=== PATIENT | female | born 1945 | race Caucasian/White ===

== ENCOUNTER → 2016-07-26 | Outpatient (CLI) | payer MEDICARE ==
--- NOTE | 2016-07-27 08:27 | MR ---
EXAMINATION TYPE: MR lumbar spine wo con DATE OF EXAM: 07/26/2016 2:09 PM COMPARISON: NONE HISTORY: Low back pain TECHNIQUE: Multiplanar, multisequence images of the lumbar spine were acquired. L1-L2: There is mild to moderate disc desiccation. Mild circumferential disc bulge with mild effaceme nt of the ventral thecal sac. No evidence for ayesha herniation or central stenosis. Facet joint arthr opathy resulting in bilateral foraminal encroachment. L2-L3: There is mild to moderate disc desiccation. Mild circumferential disc bulge with mild effaceme nt of the ventral thecal sac. No evidence for ayesha herniation or central stenosis. Facet joint arthr opathy resulting in bilateral foraminal encroachment. L3-L4: Moderate disc desiccation seen. Mild subligamentous disc herniation effaces the ventral thecal sac. There is facet joint arthropathy and hypertrophy of the ligamentum flavum resulting in mild jonatan tral stenosis. There is bilateral foraminal encroachment identified as well. L4-L5: There is mild to moderate disc desiccation. Mild circumferential disc bulge with mild effaceme nt of the ventral thecal sac. There is hypertrophy of the ligamentum flavum and resultant left latera l recess stenosis without overt central stenosis. Bilateral left foraminal encroachment left greater than right. Facet joint arthropathy detected. L5-S1: There is mild to moderate disc desiccation. Mild circumferential disc bulge with mild effacement of the ventral thecal sac. No evidence for ayesha her niation or central stenosis. Facet joint arthropathy resulting in bilateral foraminal encroachment. Lumbar segments are intact. No paraspinal masses are identified. Conus medullaris has a normal appe arance. Small left renal cortical cysts. Ventral spondylosis. IMPRESSION: Multilevel degenerative disc disease. 2. Disc herniation with central stenosis at L3-4. See above.
== END | disposition home or self-care (01) ==
LOC: RADMRIMAIN 13:36
PROVIDERS: ATTEND Orthopaedic Surgery
DX: M48.07 Spinal stenosis, lumbosacral region (principal); M51.36 Other intervertebral disc degeneration, lumbar region; M51.27 Other intervertebral disc displacement, lumbosacral region
CPT/HCPCS: 72148

== ENCOUNTER → 2016-08-12 | Outpatient (CLI) | payer MEDICARE ==
[2016-08-12 13:42] LABS: CH 30.9; CHCM 33.9; HCT 40.5 % (34.0-46.0); HDW 3.06; HGB 13.6 gm/dL (11.4-16.0); MCH 30.7 pg (25.0-35.0); MCHC 33.5 g/dL (31.0-37.0); MCV 91.8 fL (80.0-100.0); RBC 4.42 m/uL (3.80-5.40); RDW 13.9 % (11.5-15.5); WBC 6.2 k/uL (3.8-10.6)
[2016-08-12 13:53] LABS: Calcium 9.4 mg/dL (8.4-10.2); Potassium 4.5 mmol/L (3.5-5.1); Total Bilirubin 0.8 mg/dL (0.2-1.3); Total Protein 7.6 g/dL (6.3-8.2)
[2016-08-12 15:05] LABS: Erythrocyte Sedimentation Rate 22 mm/hr (0-20)
== END | disposition home or self-care (01) ==
LOC: LABWHC1 13:19
PROVIDERS: ATTEND Internal Medicine
DX: R53.83 Other fatigue (principal)
CPT/HCPCS: 36415; 80053; 84443; 85027; 85652

== ENCOUNTER → 2017-01-06 | Outpatient (CLI) | payer MEDICARE ==
--- NOTE | 2017-01-09 12:07 | MM ---
Reason for exam: screening (asymptomatic). Last mammogram was performed 2 years and 6 months ago. History: Patient is postmenopausal. Physical Findings: A clinical breast exam by your physician is recommended on an annual basis and results should be correlated with mammographic findings. MG 3D Screening Mammo W/Cad Bilateral CC and MLO view(s) were taken. Prior study comparison: July 04, 2014, bilateral MG screening mammo w CAD. August 21, 2013, bilateral MG screening mammo w CAD. There are scattered fibroglandular densities. Finding: There are typically benign calcifications. There is no discrete abnormality. No significant changes in finding since July 04, 2014 and August 21, 2013. ASSESSMENT: Benign, BI-RAD 2 RECOMMENDATION: Routine screening mammogram of both breasts in 1 year.
== END | disposition home or self-care (01) ==
LOC: RADMAMWWP 10:44
PROVIDERS: ATTEND Internal Medicine
DX: Z12.31 Encounter for screening mammogram for malignant neoplasm of breast (principal)
CPT/HCPCS: 77063; G0202

== ENCOUNTER 2018-04-15 11:56 | Emergency (ER) | payer MEDICARE ==
[2018-04-15 12:03] VITALS: RESP 16
[2018-04-15] MEDS ORDERED: SODIUM CHLORIDE 0.9% 1,000 ML IV STA (12:32)
[2018-04-15] MEDS ORDERED: MORPHINE SULFATE 4 MG/ML SYRINGE IVP STA (12:33)
[2018-04-15] MEDS ORDERED: MECLIZINE 12.5 MG TAB PO STA (13:01)
[2018-04-15] MEDS ORDERED: diphenhydrAMINE 25 MG CAP PO STA (13:07)
[2018-04-15 13:25] LABS: Basophils # (A) 0.1 k/uL (0-0.2); Basophils % (A) 1 %; Eosinophils # (A) 0.4 k/uL (0-0.7); Eosinophils % (A) 6 %; HCT 38.6 % (34.0-46.0); HGB 12.8 gm/dL (11.4-16.0); Lymphocytes # (A) 2.3 k/uL (1.0-4.8); Lymphocytes % (A) 35 %; MCH 30.3 pg (25.0-35.0); MCHC 33.1 g/dL (31.0-37.0); MCV 91.5 fL (80.0-100.0); Mean Platelet Volume 7.2; Monocytes # (A) 0.4 k/uL (0-1.0); Monocytes % (A) 7 %; Neutrophils # (A) 3.2 k/uL (1.3-7.7); Neutrophils % (A) 49 %; Platelet Count 240 k/uL (150-450); RBC 4.22 m/uL (3.80-5.40); RDW 13.7 % (11.5-15.5); WBC 6.5 k/uL (3.8-10.6)
--- NOTE | 2018-04-15 13:31 | XR ---
EXAMINATION TYPE: XR lumbar spine 2 or 3V , 3 VIEWS DATE OF EXAM ORDERED: 04/15/2018 HISTORY: Pain. COMPARISON: None. FINDINGS: The gallbladder has been removed. Vertebral body height and alignment are maintained. There is no spondylolysis or spondylolisthesis. T here is mild disc space loss at L to 3 and L3-4. This hypertrophic spondylosis at these levels as wel l. The pedicles are intact. IMPRESSION: 1. NO ACUTE OSSEOUS LESION. 2. DEGENERATIVE CHANGE.
[2018-04-15 13:43] LABS: Calcium 9.7 mg/dL (8.4-10.2); Magnesium 2.2 mg/dL (1.6-2.3); Potassium 5.2 mmol/L (3.5-5.1); Total Bilirubin 0.9 mg/dL (0.2-1.3)
[2018-04-15 13:48] LABS: Creatine Kinase 80 U/L (30-135)
[2018-04-15 14:01] LABS: Creatine Kinase MB <0.2 ng/mL (0.0-2.4); Troponin I <0.012 ng/mL (0.000-0.034)
--- NOTE | 2018-04-15 14:19 | ED ---
General Adult HPI - General Chief complaint: Back Pain/Injury Stated complaint: mid lumbar pain Time Seen by Provider: 04/15/18 12:05 Source: patient, RN notes reviewed Mode of arrival: EMS Limitations: no limitations - History of Present Illness Initial comments: 72-year-old female presents to the emergency determine for chief complaint of lumbar back pain. Patient states this started last night. She denies any injuries to the back. Patient states she felt like she could not out of a chair earlier today so came to the emergency department. Patient did have this pain before 2 years ago and had epidural injections at that time. Patient states she has not had pain since that time. She denies any numbness or weakness in the legs. She denies any radiating pain down the legs. No saddle anesthesia or bladder or bowel changes. Patient denies any upper back pain. Patient states she is also felt somewhat lightheaded since last night. Patient states this comes and goes. She denies any chest pain or shortness of breath.Patient has no other complaints at this time including shortness of breath, chest pain, abdominal pain, nausea or vomiting, headache, or visual changes. - Related Data Home Medications Medication Instructions Recorded Confirmed Atorvastatin [Lipitor] 20 mg PO DAILY 11/08/13 04/15/18 Lisinopril [Zestril] 10 mg PO DAILY 01/02/16 04/15/18 Previous Rx's Medication Instructions Recorded Aspirin 325 mg PO DAILY tab 01/03/16 Allergies Allergy/AdvReac Type Severity Reaction Status Date / Time morphine AdvReac "SHAKING" Verified 04/15/18 13:38 Review of Systems ROS Statement: Those systems with pertinent positive or pertinent negative responses have been documented in the HPI. ROS Other: All systems not noted in ROS Statement are negative. Past Medical History Past Medical History: Hyperlipidemia, Hypertension, Musculoskeletal Disorder, Osteoarthritis (OA) Additional Past Medical History / Comment(s): HX Cervical PROB, SOME NT ON 2 FINGERS LT HAND REMAIN. OLD INJ TO RT KNEE. History of Any Multi-Drug Resistant Organisms: None Reported Past Surgical History: Bladder Surgery, Cholecystectomy, Hysterectomy, Orthopedic Surgery, Tubal Ligation Additional Past Surgical History / Comment(s): Right Knee SCOPE- partial meniscectomy. Bladder Suspension. JACE Cataract surg. antCERVICAL FUSION , colonoscopy. Past Anesthesia/Blood Transfusion Reactions: Previous Problems w/ Anesthesia Additional Past Anesthesia/Blood Transfusion Reaction / Comment(s): Very Slow to Wake after Gallbladder SurG, Past Psychological History: No Psychological Hx Reported Smoking Status: Never smoker Past Alcohol Use History: None Reported Past Drug Use History: None Reported - Past Family History Father Family Medical History: Myocardial Infarction (HI) Mother Family Medical History: Congestive Heart Failure (CHF) General Exam Limitations: no limitations General appearance: alert, in no apparent distress Head exam: Present: atraumatic, normocephalic, normal inspection Eye exam: Present: normal appearance, PERRL, EOMI. Absent: scleral icterus, conjunctival injection, periorbital swelling ENT exam: Present: normal exam, mucous membranes moist Neck exam: Present: normal inspection, full ROM. Absent: tenderness, meningismus, lymphadenopathy Respiratory exam: Present: normal lung sounds bilaterally. Absent: respiratory distress, wheezes, rales, rhonchi, stridor Cardiovascular Exam: Present: regular rate, normal rhythm, normal heart sounds. Absent: systolic murmur, diastolic murmur, rubs, gallop, clicks GI/Abdominal exam: Present: soft, normal bowel sounds. Absent: distended, tenderness, guarding, rebound, rigid Extremities exam: Present: normal capillary refill (Capillary refill less than 2 seconds, DP pulses 2+ bilaterally and equal.) Back exam: Present: tenderness (Minimal lumbar tenderness noted.). Absent: full ROM (Patient has pain with flexion and extension of the lumbar spine. Patient is able to flex about 10.) Neurological exam: Present: alert, oriented X3, CN II-XII intact, normal gait Expanded Patient oriented to: Present: person, place, time Speech: Present: fluid speech Cranial nerves: EOM's Intact: Normal, Tongue Deviation: Normal, Nystagmus: Normal Sensory exam: Upper Extremity Light Touch: Normal, Upper Extremity Pin Prick: Normal, Lower Extremity Light Touch: Normal, Lower Extremity Pin Prick: Normal Motor strength exam: RUE: 5, LUE: 5, RLE: 5 Eye Response: (4) open spontaneously Motor Response: (6) obeys commands Verbal Response: (5) oriented Gilma Total: 15 Psychiatric exam: Present: normal affect, normal mood Course Vital Signs 04/15/18 04/15/18 04/15/18 11:58 14:58 15:37 Temperature 97.9 F Pulse Rate 63 71 Pulse Rate [ 74 Right Sitting Pulse Oximetery ] Pulse Rate [ 74 Right Standing Pulse Oximetery ] Pulse Rate [ 70 Right Supine Pulse Oximetery ] Respiratory 16 16 Rate Blood Pressure 135/74 124/74 Blood Pressure 127/79 [Right Arm Sitting] Blood Pressure 132/90 [Right Arm Standing] Blood Pressure 117/63 [Right Arm Supine] O2 Sat by Pulse 99 97 Oximetry EKG Findings - EKG Comments: EKG Findings:: Normal sinus rhythm, ventricular rate 72, WV interval 186, QTC 427 Medical Decision Making - Medical Decision Making 72-year-old female presents to the emergency department for a chief complaint of lumbar back pain. Patient states this started last night but denies any injuries. She states she has had these symptoms before and had epidural injections by Dr. Huang which did help. No numbness or weakness in the legs. No red flag symptoms. No fevers or chills. Patient has been somewhat lightheaded was feeling better at this time. Orthostatics negative. Patient does have limited lumbar flexion as well as minimal lumbar tenderness. Sensation and neurovascular intact in lower extremities. CBC and CMP are unremarkable. Potassium minimally elevated at 5.2. Creatinine is elevated at 1.81, patient states she has not been drinking much water. She states she has chronic kidney issues that her doctor is aware of. Cardiac profile troponin are negative. Urine does not show any significant evidence of infection. Lumbar spine x-ray shows degenerative changes without acute osseous lesion. CT abdomen and pelvis without contrast due to creatinine. Sigmoid diverticulosis without diverticulitis. Vitals within acceptable limits. On reevaluation patient is sitting much better and states she is ready to go home. She is ambulatory in emergency department. Patient will follow up with primary care in one day at her primary care providers office as she already has an appointment. She was educated about repeating labs including creatinine and potassium. Discussed returning if patient has any worsening symptoms. - Lab Data Result diagrams: 04/15/18 12:54 04/15/18 12:54 Lab Results 04/15/18 04/15/18 04/15/18 Range/Units 12:54 12:54 12:54 WBC 6.5 (3.8-10.6) k/uL RBC 4.22 (3.80-5.40) m/uL Hgb 12.8 (11.4-16.0) gm/dL Hct 38.6 (34.0-46.0) % MCV 91.5 (80.0-100.0) fL MCH 30.3 (25.0-35.0) pg MCHC 33.1 (31.0-37.0) g/dL RDW 13.7 (11.5-15.5) % Plt Count 240 (150-450) k/uL Neutrophils % 49 % Lymphocytes % 35 % Monocytes % 7 % Eosinophils % 6 % Basophils % 1 % Neutrophils # 3.2 (1.3-7.7) k/uL Lymphocytes # 2.3 (1.0-4.8) k/uL Monocytes # 0.4 (0-1.0) k/uL Eosinophils # 0.4 (0-0.7) k/uL Basophils # 0.1 (0-0.2) k/uL Sodium 141 (137-145) mmol/L Potassium 5.2 H (3.5-5.1) mmol/L Chloride 110 H (98-107) mmol/L Carbon Dioxide 22 (22-30) mmol/L Anion Gap 9 mmol/L BUN 27 H (7-17) mg/dL Creatinine 1.81 H (0.52-1.04) mg/dL Est GFR (CKD-EPI)AfAm 32 (>60 ml/min/1.73 sqM) Est GFR (CKD-EPI)NonAf 28 (>60 ml/min/1.73 sqM) Glucose 90 (74-99) mg/dL Calcium 9.7 (8.4-10.2) mg/dL Magnesium 2.2 (1.6-2.3) mg/dL Total Bilirubin 0.9 (0.2-1.3) mg/dL AST 20 (14-36) U/L ALT 23 (9-52) U/L Alkaline Phosphatase 57 (38-126) U/L Total Creatine Kinase 80 (30-135) U/L CK-MB (CK-2) <0.2 (0.0-2.4) ng/mL CK-MB (CK-2) Rel Index Troponin I <0.012 (0.000-0.034) ng/mL Total Protein 7.0 (6.3-8.2) g/dL Albumin 4.0 (3.5-5.0) g/dL Urine Color Urine Appearance (Clear) Urine pH (5.0-8.0) Ur Specific [place] (1.001-1.035) Urine Protein (Negative) Urine Glucose (UA) (Negative) Urine Ketones (Negative) Urine Blood (Negative) Urine Nitrite (Negative) Urine Bilirubin (Negative) Urine Urobilinogen (<2.0) mg/dL Ur Leukocyte Esterase (Negative) Urine RBC (0-5) /hpf Urine WBC (0-5) /hpf Ur Squamous Epith Cells (0-4) /hpf Urine Bacteria (None) /hpf Urine Mucus (None) /hpf 04/15/18 Range/Units 14:20 WBC (3.8-10.6) k/uL RBC (3.80-5.40) m/uL Hgb (11.4-16.0) gm/dL Hct (34.0-46.0) % MCV (80.0-100.0) fL MCH (25.0-35.0) pg MCHC (31.0-37.0) g/dL RDW (11.5-15.5) % Plt Count (150-450) k/uL Neutrophils % % Lymphocytes % % Monocytes % % Eosinophils % % Basophils % % Neutrophils # (1.3-7.7) k/uL Lymphocytes # (1.0-4.8) k/uL Monocytes # (0-1.0) k/uL Eosinophils # (0-0.7) k/uL Basophils # (0-0.2) k/uL Sodium (137-145) mmol/L Potassium (3.5-5.1) mmol/L Chloride (98-107) mmol/L Carbon Dioxide (22-30) mmol/L Anion Gap mmol/L BUN (7-17) mg/dL Creatinine (0.52-1.04) mg/dL Est GFR (CKD-EPI)AfAm (>60 ml/min/1.73 sqM) Est GFR (CKD-EPI)NonAf (>60 ml/min/1.73 sqM) Glucose (74-99) mg/dL Calcium (8.4-10.2) mg/dL Magnesium (1.6-2.3) mg/dL Total Bilirubin (0.2-1.3) mg/dL AST (14-36) U/L ALT (9-52) U/L Alkaline Phosphatase (38-126) U/L Total Creatine Kinase (30-135) U/L CK-MB (CK-2) (0.0-2.4) ng/mL CK-MB (CK-2) Rel Index Troponin I (0.000-0.034) ng/mL Total Protein (6.3-8.2) g/dL Albumin (3.5-5.0) g/dL Urine Color Yellow Urine Appearance Clear (Clear) Urine pH 5.5 (5.0-8.0) Ur Specific [place] 1.024 (1.001-1.035) Urine Protein Trace H (Negative) Urine Glucose (UA) Negative (Negative) Urine Ketones Negative (Negative) Urine Blood Negative (Negative) Urine Nitrite Negative (Negative) Urine Bilirubin Negative (Negative) Urine Urobilinogen <2.0 (<2.0) mg/dL Ur Leukocyte Esterase Trace H (Negative) Urine RBC 1 (0-5) /hpf Urine WBC 3 (0-5) /hpf Ur Squamous Epith Cells 2 (0-4) /hpf Urine Bacteria Rare H (None) /hpf Urine Mucus Occasional H (None) /hpf Disposition Clinical Impression: Back pain Disposition: HOME SELF-CARE Condition: Good Instructions: Chronic Back Pain (ED), Acute Low Back Pain (ED) Additional Instructions: Please take Tylenol for pain. Please follow up at your primary care appointment in 2 days. Please follow-up with Dr. Jack for back pain. Return if you have any worsening symptoms. Is patient prescribed a controlled substance at d/c from ED?: No Referrals: Jb Hamm MD [Primary Care Provider] - 1-2 days Time of Disposition: 16:40
[2018-04-15 14:37] LABS: Appearance,Urine Clear (Clear); Bacteria,Urine Rare /hpf; Bilirubin,Urine Negative (Negative); Blood,Urine Negative (Negative); Color,Urine Yellow; Glucose,Urine (UA) Negative (Negative); Ketones,Urine Negative (Negative); Leukocyte Esterase,Urine Trace (Negative); Mucus,Urine Occasional /hpf; Nitrite,Urine Negative (Negative); PH, Urine 5.5 (5.0-8.0); Protein,Urine Trace (Negative); RBC,Urine 1 /hpf (0-5); Specific Gravity,Urine 1.024 (1.001-1.035); Squamous Epithelial Cell,Urine 2 /hpf (0-4); Urobilinogen,Urine <2.0 mg/dL (<2.0); WBC,Urine 3 /hpf (0-5)
--- NOTE | 2018-04-15 16:04 | CT ---
EXAMINATION TYPE: CT abdomen pelvis wo con DATE OF EXAM: 04/15/2018 COMPARISON: None HISTORY: back pain CT DLP: 629.9 mGycm Automated exposure control for dose reduction was used. TECHNIQUE: Helical acquisition of images was performed from the lung bases through the pelvis. FINDINGS: There is mild subsegmental atelectasis at the lung bases. There is no pericardial effusion. There is no pleural effusion. Stomach appears normal. There are clips from cholecystectomy. Liver shows no foc al defect. The bile ducts are not dilated. Spleen appears normal. There is no pancreatic mass. There is no adrenal mass. There is 5 mm calculus lateral right kidney. There is no hydronephrosis. Ur eters are not dilated. There is no retroperitoneal adenopathy. Bladder distends smoothly. There is no inguinal hernia. There is small umbilical hernia that contains fat. There is no mesenteric edema. I see no evidence of a bowel obstruction. There are no dilated loops. T here is no intestinal wall thickening. There are phleboliths in the pelvis. Appendix is not seen. The re is no sign of appendicitis. There are diverticula in the sigmoid colon. Lumbar spine is intact. [place] pelvis appears intact. There is no evidence of free air. IMPRESSION: THERE IS SIGMOID DIVERTICULOSIS WITHOUT DIVERTICULITIS. No sign of acute abdomen and pelvis.
[2018-04-15 17:10] VITALS: BP 145/74; PULSE 78; TEMP 97.8
== END 2018-04-15 17:09 | disposition home or self-care (01) ==
LOC: EC 11:56
DX: M54.5 Low back pain (principal); R42 Dizziness and giddiness; K57.30 Diverticulosis of large intestine without perforation or abscess without bleeding; E78.5 Hyperlipidemia, unspecified; I10 Essential (primary) hypertension; Z79.899 Other long term (current) drug therapy; Z88.5 Allergy status to narcotic agent; Z90.49 Acquired absence of other specified parts of digestive tract; Z90.710 Acquired absence of both cervix and uterus; Z98.1 Arthrodesis status
CPT/HCPCS: 99285 ×2; 96374 ×2; 96361 ×4; 36415; 93005; 80053; 82550; 82553; 83735; 84484; 85025; 81001; 72100; 74176; J2270

== ENCOUNTER → 2018-04-26 | Outpatient (CLI) | payer MEDICARE ==
[2018-04-26 18:06] LABS: Potassium 4.6 mmol/L (3.5-5.1)
[2018-04-26 18:28] LABS: INR 0.9 (<1.2); Partial Thromboplastin Time 23.5 sec (22.0-30.0); Prothrombin Time 9.9 sec (9.0-12.0)
== END | disposition home or self-care (01) ==
LOC: LABPAT 17:18
PROVIDERS: ATTEND Orthopaedic Surgery
DX: Z01.812 Encounter for preprocedural laboratory examination (principal); M17.11 Unilateral primary osteoarthritis, right knee
CPT/HCPCS: 36415; 80051; 85610; 85730; 87070

== ENCOUNTER 2018-05-08 06:14 | Inpatient (IN) | payer MEDICARE ==
--- NOTE | 2018-05-07 08:53 | HP ---
HISTORY AND PHYSICAL CHIEF COMPLAINT: Right knee pain. HISTORY OF PRESENT ILLNESS: The patient is a 72-year-old retired female who presents with progressive right knee pain secondary to osteoarthrosis worsening over the past year. She is having a difficult time with weightbearing activities. She is having pain, swelling, and stiffness. She notes it severely limits her. She has tried previous injections. In addition, she has had a previous arthroscopy. She has also tried medications. PAST MEDICAL HISTORY: Significant for arthritis and hypertension. PAST SURGICAL HISTORY: Significant for right knee arthroscopy. CURRENT MEDICATIONS: 1. Lipitor. 2. Aspirin. 3. Lisinopril. ALLERGIES: She denies drug allergies. FAMILY HISTORY: Significant for heart disease and hypertension. SOCIAL HISTORY: Negative for current tobacco or alcohol use. REVIEW OF SYSTEMS: Sixteen-point review of systems otherwise reviewed and is noncontributory. PHYSICAL EXAMINATION: On examination, the patient is approximately 5 feet, 1 inch, 180 pounds of endomorphic habitus. HEENT exam is nonfocal. Neck is supple. She has painless passive motion of her right hip, however, it is somewhat limited. Active motion right knee -10 to 125 degrees of flexion. She is tender about the lateral joint line. She has mild effusion. Collaterals are stable, Melanie's negative, Lamonte's is equivocal. She has genu valgum alignment. Her distal neurovascular exam appears to be intact in the right lower extremity. Weightbearing notch lateral and Merchant views of the right knee obtained in the office show severe lateral compartment narrowing. IMPRESSION: Right knee severe lateral compartment osteoarthrosis. RECOMMENDATIONS: I talked to the patient at length regarding her condition and treatment options. At this point, she is having persistent symptoms that limit her despite conservative measures. After thorough discussion, she opts to proceed with surgery. We will plan to proceed with right total knee arthroplasty. Risks and benefits were discussed at length in layman's terms. We will institute DVT prophylaxis postoperatively. MMODL / IJN: [id number] /
[~2018-05-08 06:14] MED LIST: ACETAMINOPHEN TAB 500 MG TAB PO ONE; LIDOCAINE 1% 20 ML VIAL (10MG/ML) FOR IV START INTRADERMA PRN; MELOXICAM 7.5 MG TAB PO ONE; ONDANSETRON 4 MG/2 ML VIAL IVP ONE; TRANEXAMIC ACID 1,000 MG in SODIUM CHLORIDE 0.9% 50 ML IVPB ONE; ceFAZolin IN SWFI 2 GM/20 ML SYRINGE IVP ONE; fentaNYL (PF) 50 MCG/ML 2 ML AMP IV PRN
[2018-05-08] MEDS: LACTATED RINGERS 1,000 ML IV SCH (06:48)
[2018-05-08] MEDS ORDERED: DEXAMETHASONE SOD PHOSPHATE 10 MG/ML 1 ML VIAL IV ONE (06:49)
[2018-05-08] MEDS ORDERED: MIDAZOLAM 2 MG/2 ML VIAL IVP ONE (07:37)
[2018-05-08] MEDS ORDERED: ePHEDrine SULFATE/0.9% NACL/PF 50 MG/5 ML SYRINGE IV ONE (07:57)
[2018-05-08] MEDS ORDERED: PROPOFOL 10 MG/ML 20 ML VIAL IV ONE (07:57)
[2018-05-08] MEDS ORDERED: MIDAZOLAM 2 MG/2 ML VIAL ONE (07:57)
[2018-05-08] MEDS ORDERED: fentaNYL (PF) 50 MCG/ML 2 ML AMP ONE (07:57)
[2018-05-08] MEDS ORDERED: GLYCOPYRROLATE 0.2 MG/ML 2 ML VIAL ONE (07:57)
[2018-05-08] MEDS ORDERED: ROPIVACAINE 246.25 MG, EPINEPHrine 0.5 MG, KETOROLAC 30 MG, cloNIDine HCL/PF 80 MCG, WA... MISCELLANE ONE ×5 (08:07)
[2018-05-08] MEDS ORDERED: ceFAZolin 3,000 MG in SODIUM CHLORIDE 0.9% IRRIGATIO 3,000 ML IRRIGATION ONE (08:35)
[2018-05-08] MEDS ORDERED: ROPIVACAINE 1,100 MG, SODIUM CHLORIDE 0.9% 500 ML 330 ML MISCELLANE PRN ×2 (09:14)
[2018-05-08] MEDS ORDERED: traMADol 50 MG TAB PO PRN (09:35)
[2018-05-08] MEDS ORDERED: MAGNESIUM HYDROXIDE 2,400 MG/10 ML CUP PO PRN (09:35)
[2018-05-08] MEDS ORDERED: HYDROmorphone 0.5 MG/0.5 ML SYRINGE IVP PRN ×2 (09:35)
[2018-05-08] MEDS ORDERED: ONDANSETRON 4 MG/2 ML VIAL IVP PRN (09:35)
[2018-05-08] MEDS ORDERED: HYDROcodone/APAP 5-325MG 1 EACH TAB PO PRN ×2 (09:35)
[2018-05-08] MEDS ORDERED: NALOXONE 0.4 MG/ML 1 ML VIAL IV PRN (09:35)
[2018-05-08] MEDS ORDERED: LACTATED RINGERS 1,000 ML IV ONE (09:42)
--- NOTE | 2018-05-08 10:02 | P.OP ---
Date of Procedure: 05/08/18 Preoperative Diagnosis: Right knee severe tricompartmental osteoarthrosis Postoperative Diagnosis: Same Procedure(s) Performed: Right total knee [id number] retaining Implants: Depuy Attune size 5 cemented femoral component, size 4 cemented tibial component , 9 mm articular surface, 32 mm cemented patellar component. This is a cruciate retaining implant. Anesthesia: regional, local, spinal Surgeon: Eladio Jack Head Char Filter Tank Tender #1: Gilbert Washington Estimated Blood Loss (ml): 50 Pathology: other (Bone fragments) Condition: stable Disposition: PACU Indications for Procedure: The patient is a 72-year-old female who presents with progressive right knee pain secondary to osteoarthrosis despite conservative measures. A discussion of the risks and benefits of operative intervention versus continued conservative measures was made with patient. She opted to proceed with surgery. Operative risks to include infection, neurovascular injury, development of blood clots, possible component loosening, possible component failure and need for subsequent procedures was discussed. Informed consent was obtained. Operative Findings: As below Description of Procedure: The patient was brought to the operating room, and after induction of spinal anesthesia the right lower extremity was prepped and draped in a normal fashion. The tourniquet was inflated to 270 mmHg. A longitudinal incision extending 3 finger breaths above the superior pole of the patella extending to the medial aspect the tibial tubercle was then made. The skin and subcutaneous tissues were divided sharply. Electrocautery was used for hemostasis. A medial parapatellar arthrotomy was then performed. The medial soft tissues to include the superficial and deep portions of the medial collateral ligament as well as the medial hamstring tendons were elevated subperiosteally. The proximal medial tibia osteophytes were carefully removed. The patella was everted. The knee was flexed. A portion of the retropatellar fat pad was excised sharply. The anterior cruciate ligament was sacrificed. A starting hole was made in the distal femur 1 cm anterior to the posterior cruciate origin. An intramedullary femoral guide was gently inserted planning on 5 valgus distal cut with 9 mm distal resection. The cutting block was pinned in place. The distal cut was then made. The posterior referencing sizing guide was utilized. 3 of external rotation was built into the system and verified off the trans-epicondylar axis and the posterior condyles. I felt size 5 was most appropriate. The cutting block was pinned in place. The anterior, posterior, and chamfer cuts were then made. The bone fragments were removed. A sulcus cut was then made with the appropriate guide. The trial size 5 femoral component was then placed and was fully seated. There was good anterior to posterior and medial to lateral fit. The distal peg holes were then drilled. The trial component was then removed. Attention was then paid towards preparing the proximal tibia. An extra medullary guide was utilized in line with the tibial shaft and second metatarsal distally. A 7 posterior slope was planned. I planned on 2 mm resection from the medial compartment. The cutting block was pinned in place. The proximal tibial cut was then made. The bone was removed in one fragment. The remnants of the medial and lateral menisci were excised the capsule junction with electrocautery. The tibia sized most appropriately at size 4. The posterior osteophytes off the distal femur were carefully removed with a curved osteotome. The trial tibial and femoral components were placed along with a 9 millimeters articular surface. I was able to obtain full flexion and extension with good stability with varus and valgus stress. After several flexion and extension cycles, the tibial rotation was marked with electrocautery in line with the medial one third of the tibial tubercle. Attention was then paid towards preparing the patella. A patella reamer was utilized taking this down to 14 mm of bone stock. A good flush cut was made. The patella sized most appropriately at 32 millimeters. The peg holes were then drilled. The trial component was placed. The knee was taken through a range of motion. I had good patellofemoral tracking with no hands technique. The trial components were then removed. The tibia was prepared in the appropriate rotation with appropriate drill and keel punch. The flexion and extension gaps were checked and felt to be symmetric. The posterior soft tissues were injected with ropivacaine. The bony surfaces were prepared with pulsatile lavage and dried. The deep tibial component was then cemented in place and was fully seated. Excess cement was removed. The femoral component was cemented in place and was fully seated. Again excess cement was removed. The trial 9 millimeters surface was then inserted in the knee was put in full extension. The patella component was cemented in place. After the cement had sufficiently hardened, the knee was again taken through a range of motion. Again there was good stability in flexion and extension with varus and valgus stress. The trial articular surface was then removed. The final articular surface was placed and was impacted. Care was taken to avoid any soft tissue interposition. Pulsatile lavage was again utilized. The tourniquet was deflated with approximately 70 minutes total tourniquet time. There was minimal drainage therefore a deep drain was not placed. The medial parapatellar arthrotomy was then closed with #2 Ethibond suture. The subcutaneous tissues were reapproximated interrupted 2-0 Vicryl sutures. The skin was reapproximated with 3-0 subarticular strata fix suture. Skin tape and adhesive was applied. A sterile dressing was applied. The patient was then awoken from sedation and transferred to recovery room in good condition. Blood loss was estimated at 50 milliliters. No complications were incurred. Sponge and needle counts were correct at the end the case. Cecil HINDS assisted during the major components this case to include exposure, bone resection, and implantation.
--- NOTE | 2018-05-08 10:26 | XR ---
EXAMINATION TYPE: XR knee limited RT DATE OF EXAM: 05/08/2018 CLINICAL HISTORY: Postoperative evaluation Two views of the right knee are submitted. Identified are changes of total knee arthroplasty with femoral and tibial components appearing well seated. Postsurgical soft tissue changes are noted. Alignment is anatomic.
[2018-05-08 14:33] VITALS: BMI 34.5
[2018-05-08] MEDS: ceFAZolin IN SWFI 2 GM/20 ML SYRINGE IVP SCH ×2 (18:43→23:44)
[2018-05-08] MEDS ORDERED: SENNOSIDES-DOCUSATE SODIUM 1 EACH TAB PO SCH (21:00)
--- NOTE | 2018-05-08 22:45 | PN ---
PROGRESS NOTE This is a postoperative consultation. Preoperative consultation was done as an outpatient. CHIEF COMPLAINT: Reevaluation. HISTORY OF PRESENT ILLNESS: This 72-year-old female is status post right total knee arthroplasty. She is doing fairly well post surgery. REVIEW OF SYSTEMS: NEURO: Denies any headaches, dizziness. PSYCH: No anxiety. CARDIAC: No chest pain, angina, palpitations. RESPIRATORY: Denies shortness of breath, cough. GI: No nausea, vomiting, abdominal pain, diarrhea. : No symptoms of dysuria or hematuria, urgency, frequency. EXTREMITIES: No pain, edema. The patient has postoperative right knee but no pain. CONSTITUTIONAL: No fever, chills. PHYSICAL EXAMINATION: Pleasant female, at present in no distress. Vital signs reveal temperature 98.4, pulse 73, respirations 16, blood pressure 138/82, pulse ox 98% on room air. HEENT: Normocephalic. NECK: No JVD. CHEST: Clear to auscultation, percussion. CARDIAC: Normal S1, S2 with no gallops, murmurs. ABDOMEN: Soft. No palpable masses. Bowel sounds normal. No organomegaly. No abdominal bruits. Extremities reveal no edema. Good pulses, both upper and lower extremities. NEUROLOGIC: Awake, alert, oriented x3 with well-coordinated movements, both upper extremities. LABORATORY ASSESSMENT: None postoperative. Past medical history is significant for history of hypertension and previous significant spinal stenosis in cervical spine. ASSESSMENT: 1. Hypertension. On medical therapy. 2. Degenerative arthritis, status post right knee arthroplasty. 3. Obesity. PLAN: The patient is stable. Continue present medical regimen. Patient's condition was discussed with the patient. Prognosis is guarded. The patient's condition was discussed with the spouse and family. Medications were re-ordered. MMODL / IJN: [id number] /
[2018-05-09 00:55] VITALS: RESP 16
[2018-05-09] MEDS: LACTATED RINGERS 1,000 ML IV SCH (03:27)
--- NOTE | 2018-05-09 07:10 | P.ONQ ---
Anesthesiology Proc Note - PNB - Peripheral Nerve Block Performed Right Adductor Canal Infusion Time Out Performed: Yes Procedure Start Time: 07:37 Procedure Stop Time: 07:54 Indication: Acute Post-Operative Pain, Requested by physician Sedation Type: Sedate with meaningful contact maintained Preparation: Sterile Dressing Position: Supine Catheter: Indwelling Needle Types: On-Q Needle Size: 100mm (4") Needle Gauge: 21 Technique: Ultrasound Injectate: 0.5% Ropivacaine (see comment for volume) (ropi .5% 20cc) Blood Aspirated: No Pain Paresthesia on Injection Noted: No Resistance on Injection: Normal Events: Uneventful and Well Tolerated
[2018-05-09 07:16] LABS: Basophils % (A) 0 %; Eosinophils % (A) 0 %; HCT 32.1 % (34.0-46.0); HGB 10.8 gm/dL (11.4-16.0); Lymphocytes # (A) 1.4 k/uL (1.0-4.8); Lymphocytes % (A) 15 %; MCH 31.4 pg (25.0-35.0); MCHC 33.5 g/dL (31.0-37.0); MCV 93.5 fL (80.0-100.0); Mean Platelet Volume 7.4; Monocytes # (A) 0.4 k/uL (0-1.0); Monocytes % (A) 5 %; Neutrophils # (A) 7.2 k/uL (1.3-7.7); Neutrophils % (A) 78 %; Platelet Count 180 k/uL (150-450); RBC 3.43 m/uL (3.80-5.40); RDW 13.8 % (11.5-15.5); WBC 9.2 k/uL (3.8-10.6)
[2018-05-09 08:01] VITALS: BP 108/65; PULSE 67; TEMP 97.8
--- NOTE | 2018-05-09 08:02 | P.PN ---
Progress Note - Text 05/09 743am 73-year-old female status post total knee replacement by Dr. Jack. Patient has an On-Q pump for postop pain control with the solution running at 8 mL an hour with a pain score of 1-2. Plan to continue On-Q pump infusion
[2018-05-09] MEDS ORDERED: ATORVASTATIN 20 MG TAB PO SCH (09:00)
[2018-05-09] MEDS ORDERED: RIVAROXABAN 10 MG TAB PO SCH (09:00)
[2018-05-09] MEDS ORDERED: ASPIRIN 325 MG TAB PO SCH (09:00)
[2018-05-09] MEDS ORDERED: LISINOPRIL 10 MG TAB PO SCH (09:00)
--- NOTE | 2018-05-09 11:59 | P.PN ---
Subjective Progress Note Date: 05/09/18 Principal diagnosis: Status post right total knee arthroplasty Patient evaluated today bedside, she is resting comfortably. Her pain is well controlled. She's ambulated well with therapy. Objective - Vital Signs Vital signs: Vital Signs Temp 97.8 F 05/09/18 07:00 Pulse 67 05/09/18 07:00 Resp 16 05/09/18 07:00 BP 108/65 05/09/18 07:00 Pulse Ox 95 05/09/18 07:00 Intake & Output 05/08/18 05/09/18 05/09/18 18:59 06:59 18:59 Intake Total 901 500 200 Output Total 50 Balance 851 500 200 Intake: IV 901 Intake, IV Titration 500 Amount Lactated Ringers 1,000 ml 500 @ 50 mls/hr IV .Q20H DAMIEN Rx#:[id number] Oral 200 Output: Estimated Blood Loss 50 Other: Voiding Method Toilet # Voids 1 2 - Exam Right lower extremity: Incision is clean, dry, and intact. The exofin fusion tape is in good condition. There is minimal soft tissue swelling and ecchymosis surrounding the medial and lateral aspects of the incision. Calf is soft, no tenderness with palpation. Plantar flexion, dorsiflexion, EHL, FHL are intact. Sensory exam to light touch throughout the extremity is intact, dorsal pedis pulses 2+. - Labs CBC & Chem 7: 05/09/18 06:54 Labs: Abnormal Lab Results - Last 24 Hours (Table) 05/09/18 Range/Units 06:54 RBC 3.43 L (3.80-5.40) m/uL Hgb 10.8 L (11.4-16.0) gm/dL Hct 32.1 L (34.0-46.0) % Assessment and Plan Plan: Assessment: Postop day 1 status post right total knee arthroplasty Plan: Pain control, we'll discharge home on oral medication GI and DVT prophylaxis, Eliquis 2.5mg bid for 14 days Wound care instructions discussed Home physical therapy and nursing of discharge Medical recommendations Discharge planning: Patient will be discharged home today Time with Patient: Less than 30
--- NOTE | 2018-05-09 12:04 | P.DS ---
Providers Date of admission: 05/08/18 06:14 Expected date of discharge: 05/09/18 Attending physician: Eladio Jack Consults: 05/08/18 09:35 Consult Physician Routine Consulting Provider: Jb Hamm Reason/Comments: medical management Do you want consulting provider notified?: Yes Primary care physician: Jb Hamm Hospital Course: Date of admission: 05/08/2018 Date of discharge: 05/09/2018 Admission diagnosis: Status post right total knee arthroplasty Discharge diagnosis: Same Attending physician: Dr. Jack Surgical procedures: Right total knee arthroplasty Brief history: Patient is a 72-year-old female with a history of progressive primary right knee osteoarthritis. At this point patient has failed conservative treatment measures and has opted to proceed with a elective right total knee arthroplasty. Hospital course: Details of patient's surgery can be found in operative report. Patient tolerated the procedure well and was subsequently transported to orthopedic floor. Patient's orthopeidc and medical care was provided daily. Patient had daily laboratory tests performed for evaluation of overall blood counts. Patient had daily physical therapy to include strengthening range of motion as well as education with walker ambulation. Patient had daily CPM usage as part of their physical therapy program. Patient was treated with Xarelto for their postoperative DVT prophylaxis during their inpatient stay. Patient was noted to have a relatively uneventful postoperative course. Patient reported satisfactory pain control with oral pain medications by postoperative day 0. Patient showed satisfactory progress with physical therapy. Patient moved steadily through the program and had no difficulty meeting the goals by postoperative day 1. Given patient's otherwise satisfactory course and having met physical therapy goals, plan is to discharge patient home on postoperative day 1. Discharge condition/disposition: Patient will be discharged home in stable condition. Discharge medications: Instructions are given on resumption of patient's normal daily medications per primary care recommendation, in addition patient will be prescribed Overton 5 mg/325 mg, Colace 100 mg, Eliquis 2.5mg. Discharge instructions: 1. Wound care and infection precautions, keep incision dry and covered while showering, no lotions, creams, moisturizers. No soaking, tubs, pools, hottubs. Do not scrub over the incision. 2. Weight-bear as tolerated with walker / cane until follow-up. 3. Ice and elevate when necessary. Do not exceed 20 minutes per hour with ice pack. 4. Utilize compression sleeve until seen at first follow up appointment. 5. Visiting nursing care. 6. Home physical therapy including home CPM. 7. Pain meds and anticoagulants per prescription. 8. Pain medication has potential to cause constipation. Increase oral fluid and fiber intake. Contact primary care provider if you have not had a bowel movement within 48 hours after discharge 9. No anti-inflammatory medication until discussed at first post operative visit, this including Motrin, Aleve, Mobic, Diclofenac. 10. Follow up in office at 2 weeks postop with Cecil Washington PA-C 11. Follow up with your primary care doctor 7-10 days after discharge. 12. Contact [facility] with any questions, . Procedures: Right total knee arthroplasty Patient Condition at Discharge: Good Plan - Discharge Summary Discharge Rx Participant: Yes New Discharge Prescriptions: New Apixaban [Eliquis] 2.5 mg PO BID #30 tab Docusate [Colace] 100 mg PO DAILY #30 capsule Hydrocodone/Acetaminophen [Overton 5-325] 1 - 2 each PO Q6HR PRN #56 tab PRN Reason: Pain No Action Atorvastatin [Lipitor] 20 mg PO DAILY Lisinopril [Zestril] 10 mg PO DAILY Aspirin 325 mg PO DAILY tab Discharge Medication List Atorvastatin [Lipitor] 20 mg PO DAILY 11/08/13 [History] Lisinopril [Zestril] 10 mg PO DAILY 01/02/16 [History] Aspirin 325 mg PO DAILY tab 01/03/16 [Rx] Apixaban [Eliquis] 2.5 mg PO BID #30 tab 05/09/18 [Rx] Docusate [Colace] 100 mg PO DAILY #30 capsule 05/09/18 [Rx] Hydrocodone/Acetaminophen [Overton 5-325] 1 - 2 each PO Q6HR PRN #56 tab 05/09/18 [Rx] Follow up Appointment(s)/Referral(s): Jb Hamm MD [Primary Care Provider] - 05/15/18 2:30 pm [facility], [NON-STAFF] - Gilbert Washington PAC [PHYSICIAN TRACK REPAIR SUPERVISOR] - 05/25/18 2:00 pm Activity/Diet/Wound Care/Special Instructions: Orthopedic Discharge Instructions: 1. Wound care and infection precautions, keep incision dry and covered while showering, no lotions, creams, moisturizers. No soaking, pools, hot tubs. Do not scrub over incision. 2. Weight-bear as tolerated with walker / cane until follow-up. 3. Ice and elevate when necessary. Do not exceed 20 minutes per hour with ice pack. 4. Utilize compression sleeve until seen at first follow up appointment. 5. Pain meds and anticoagulants per prescription. 6. Pain medication has potential to cause constipation. Increase oral fluid and fiber intake. Contact primary care provider if you have not had a bowel movement within 48 hours after discharge. 7. No anti-inflammatory medication until discussed at first post operative visit, this including Motrin, Aleve, Mobic, Diclofenac. 8. Follow up in office at 2 weeks postop with Cecil Washington PA-C 9. Follow up with your primary care doctor 7-10 days after discharge. 10. Contact [facility] with any questions, . Discharge Disposition: HOME WITH HOME HEALTH SERVICES
== END 2018-05-09 13:37 | disposition home health service (06) | DRG 470 ==
LOC: 2ORMAIN 06:14 → 4SSUR 13:50
PROVIDERS: ADMIT Orthopaedic Surgery; ATTEND Orthopaedic Surgery
PROC: 0SRC0J9 Replacement of Right Knee Joint with Synthetic Substitute, Cemented, Open Approach (ICD-10-PCS; principal; 2018-05-08 08:00)
DX: M17.11 Unilateral primary osteoarthritis, right knee (principal); E66.9 Obesity, unspecified; Z68.35 Body mass index [BMI] 35.0-35.9, adult; I10 Essential (primary) hypertension; Z82.49 Family history of ischemic heart disease and other diseases of the circulatory system; I12.9 Hypertensive chronic kidney disease with stage 1 through stage 4 chronic kidney disease, or unspecified chronic kidney disease; N18.3 Chronic kidney disease, stage 3 (moderate); Z79.899 Other long term (current) drug therapy; M54.12 Radiculopathy, cervical region; M48.02 Spinal stenosis, cervical region; M48.061 Spinal stenosis, lumbar region without neurogenic claudication; E78.5 Hyperlipidemia, unspecified; Z79.82 Long term (current) use of aspirin; Z90.49 Acquired absence of other specified parts of digestive tract; Z90.710 Acquired absence of both cervix and uterus; Z88.5 Allergy status to narcotic agent; Z98.49 Cataract extraction status, unspecified eye
CPT/HCPCS: 85025; 88300

== ENCOUNTER 2018-07-05 08:49 | Day surgery (SDC) | payer MEDICARE ==
[2018-07-03 09:09] VITALS: BMI 33.2
--- NOTE | 2018-07-04 08:57 | HP ---
HISTORY AND PHYSICAL CHIEF COMPLAINT: Right knee stiffness. HISTORY OF PRESENT ILLNESS: This patient is a 73-year-old retired female who presents after undergoing right total knee arthroplasty on 05/08/2018 with persistent stiffness despite adequate rehabilitation. She otherwise had an uncomplicated course and denies fevers or chills. She is ambulating without any assistive devices. PAST MEDICAL HISTORY: Significant for arthritis and hypertension. CURRENT MEDICATIONS: 1. Lipitor. 2. Aspirin. 3. Lisinopril. PAST SURGICAL HISTORY: Significant for right knee arthroscopy with subsequent total knee arthroplasty. FAMILY HISTORY: Significant for heart disease and hypertension. SOCIAL HISTORY: Negative for current tobacco or alcohol use. REVIEW OF SYSTEMS: Sixteen-point review of systems otherwise reviewed and is noncontributory. PHYSICAL EXAMINATION: On examination, the patient is approximately 5 feet 1 inch, 180 pounds of endomorphic habitus. HEENT exam is nonfocal. Neck is supple. She has painless passive motion of the right hip. Straight leg raise is negative. Active motion right knee -12 to 85 degrees of flexion. Collaterals are stable. She has no real effusion. There is no significant increased warmth or erythema. There is no real joint line tenderness. Homans is negative. Her distal neurovascular exam appears intact in the right lower extremity. Weightbearing notch and lateral views of the right knee obtained in the office show a total knee arthroplasty with components in good position without definite lucencies or loosening. IMPRESSIONS: 1. Status post right total knee arthroplasty. 2. Right knee arthrofibrosis. RECOMMENDATIONS: I talked to the patient at length regarding her condition and treatment options. After thorough discussion, she opts to proceed with manipulation under anesthesia. We will likely perform that as an outpatient procedure utilizing IV sedation. We will reinstitute therapy directly thereafter along with a Medrol Dosepak. MMODL / IJN: [id number] /
[~2018-07-05 08:49] MED LIST changes: -ACETAMINOPHEN TAB 500 MG TAB PO ONE; +DEXAMETHASONE SOD PHOSPHATE 10 MG/ML 1 ML VIAL IV ONE; +LACTATED RINGERS 1,000 ML IV SCH; -LIDOCAINE 1% 20 ML VIAL (10MG/ML) FOR IV START INTRADERMA PRN; -MELOXICAM 7.5 MG TAB PO ONE; +SCOPOLAMINE 1.5MG/72HR PATCH TRANSDERM ONE; -TRANEXAMIC ACID 1,000 MG in SODIUM CHLORIDE 0.9% 50 ML IVPB ONE; -ceFAZolin IN SWFI 2 GM/20 ML SYRINGE IVP ONE; -fentaNYL (PF) 50 MCG/ML 2 ML AMP IV PRN
[2018-07-05 09:18] VITALS: TEMP 97.6
[2018-07-05] MEDS ORDERED: fentaNYL (PF) 50 MCG/ML 2 ML AMP ONE (09:49)
[2018-07-05] MEDS ORDERED: LIDOCAINE 1% INJ 10MG/ML (20 ML MDV) ONE (09:49)
[2018-07-05] MEDS ORDERED: PROPOFOL 10 MG/ML 20 ML VIAL IV ONE (09:49)
[2018-07-05] MEDS: HYDROmorphone 0.5 MG/0.5 ML SYRINGE IVP PRN ×4 (10:10→10:27)
--- NOTE | 2018-07-05 10:11 | P.OP ---
Date of Procedure: 07/05/18 Preoperative Diagnosis: Arthrofibrosis right knee status post total knee arthroplasty Postoperative Diagnosis: Same Procedure(s) Performed: Manipulation under anesthesia right knee Anesthesia: MAC Surgeon: Eladio Jack Estimated Blood Loss (ml): 0 Pathology: none sent Condition: stable Disposition: PACU Indications for Procedure: The patient's a 73-year-old female who underwent right total knee arthritis recently with adequate rehabilitation and presents with persistent stiffness. She otherwise had an uncomplicated postoperative course. A discussion of the risks and benefits of manipulation under anesthesia was made with the patient. She opted proceed. Risks of this procedure to include fracture, tendon rupture, possible recurrence of stiffness, possible need for subsequent procedures was discussed. Informed consent was obtained. Operative Findings: As below Description of Procedure: The patient was brought to the recovery room, and after induction of IV sedation I gently manipulated the right knee. There was moderate adhesions encountered obtaining full flexion. I was able to go from 90 to 130 of flexion. I was also able to obtain full extension. No complications were incurred. There was no blood loss. The patient was monitored until fully awake.
[2018-07-05] MEDS ORDERED: LACTATED RINGERS 1,000 ML IV ONE (10:29)
[2018-07-05 11:07] VITALS: RESP 16
[2018-07-05 11:33] VITALS: BP 121/76; PULSE 81
== END 2018-07-05 11:45 | disposition home or self-care (01) ==
LOC: OR 08:49
PROVIDERS: ATTEND Orthopaedic Surgery
DX: M24.661 Ankylosis, right knee (principal); Z96.651 Presence of right artificial knee joint; M19.90 Unspecified osteoarthritis, unspecified site; I10 Essential (primary) hypertension; E78.5 Hyperlipidemia, unspecified; Z79.82 Long term (current) use of aspirin; Z79.899 Other long term (current) drug therapy; Z88.5 Allergy status to narcotic agent
CPT/HCPCS: 27570; J1100; J2405; J1170

== ENCOUNTER → 2018-08-21 | Outpatient (CLI) | payer MEDICARE ==
[2018-08-21 19:02] LABS: Parathyroid Hormone Intact 81.2 pg/mL (14.0-72.0)
[2018-08-21 20:16] LABS: Anion Gap 6.7 mmol/L (4.00-12.00); Calcium 8.8 mg/dL (8.7-10.3); Carbon Dioxide 23.3 mmol/L (21.6-31.8); Potassium 4.8 mmol/L (3.5-5.5)
[2018-08-21 20:23] LABS: Vitamin D 25 Hydroxy 30.5 ng/mL (30.0-100.0)
== END | disposition home or self-care (01) ==
LOC: LABWHC1 11:19
PROVIDERS: ATTEND Internal Medicine Nephrology
DX: N18.3 Chronic kidney disease, stage 3 (moderate) (principal)
CPT/HCPCS: 36415; 80048; 82306; 83970

== ENCOUNTER → 2018-09-04 | Outpatient (CLI) | payer MEDICARE ==
[2018-09-04 13:56] LABS: Basophils # (A) 0.1 k/uL (0-0.2); Basophils % (A) 2 %; Eosinophils # (A) 0.3 k/uL (0-0.7); Eosinophils % (A) 6 %; HCT 36.1 % (34.0-46.0); HGB 11.9 gm/dL (11.4-16.0); Hypochromasia Slight; Lymphocytes # (A) 2.3 k/uL (1.0-4.8); Lymphocytes % (A) 42 %; MCH 30.4 pg (25.0-35.0); MCV 92.1 fL (80.0-100.0); Mean Platelet Volume 7.9; Monocytes # (A) 0.3 k/uL (0-1.0); Monocytes % (A) 6 %; Neutrophils # (A) 2.3 k/uL (1.3-7.7); Neutrophils % (A) 43 %; Platelet Count 214 k/uL (150-450); RBC 3.92 m/uL (3.80-5.40); RDW 15.1 % (11.5-15.5); WBC 5.4 k/uL (3.8-10.6)
[2018-09-04 15:52] LABS: Erythrocyte Sedimentation Rate 20 mm/hr (0-20)
== END | disposition home or self-care (01) ==
LOC: LABWHC1 12:52
PROVIDERS: ATTEND Orthopaedic Surgery
DX: M25.561 Pain in right knee (principal)
CPT/HCPCS: 36415; 85025; 85652; 86140

== ENCOUNTER → 2018-10-30 | Outpatient (CLI) | payer MEDICARE ==
--- NOTE | 2018-10-31 13:53 | MM ---
Reason for exam: screening (asymptomatic). Last mammogram was performed 1 year and 10 months ago. History: Patient is postmenopausal. Physical Findings: A clinical breast exam by your physician is recommended on an annual basis and results should be correlated with mammographic findings. MG 3D Screening Mammo W/Cad Bilateral CC and MLO view(s) were taken. Prior study comparison: January 06, 2017, bilateral MG 3d screening mammo w/cad. July 04, 2014, bilateral MG screening mammo w CAD. There are scattered fibroglandular densities. There are benign appearing round linear calcifications bilaterally. There is no discrete abnormality. ASSESSMENT: Benign, BI-RAD 2 RECOMMENDATION: Routine screening mammogram of both breasts in 1 year.
== END | disposition home or self-care (01) ==
LOC: RADMAMWWP 08:11
PROVIDERS: ATTEND Internal Medicine
DX: Z12.31 Encounter for screening mammogram for malignant neoplasm of breast (principal); M85.80 Other specified disorders of bone density and structure, unspecified site
CPT/HCPCS: 77063; 77067

== ENCOUNTER → 2019-01-02 | Outpatient (CLI) | payer MEDICARE ==
[2019-01-02 17:36] LABS: Appearance,Urine Cloudy (Clear); Bacteria,Urine Moderate /hpf; Bilirubin,Urine Negative (Negative); Blood,Urine Moderate (Negative); Color,Urine Yellow; Glucose,Urine (UA) Negative (Negative); Ketones,Urine Negative (Negative); Leukocyte Esterase,Urine Large (Negative); Mucus,Urine Few /hpf; Nitrite,Urine Positive (Negative); PH, Urine 5.5 (5.0-8.0); Protein,Urine 1+ (Negative); RBC,Urine 47 /hpf (0-5); Specific Gravity,Urine 1.019 (1.001-1.035); Squamous Epithelial Cell,Urine 14 /hpf (0-4); Urobilinogen,Urine <2.0 mg/dL (<2.0); WBC,Urine 76 /hpf (0-5)
[2019-01-02 17:50] LABS: Basophils # (A) 0.2 k/uL (0-0.2); Basophils % (A) 3 %; Eosinophils # (A) 0.3 k/uL (0-0.7); Eosinophils % (A) 5 %; HCT 37.9 % (34.0-46.0); HGB 12.6 gm/dL (11.4-16.0); Lymphocytes # (A) 2.2 k/uL (1.0-4.8); Lymphocytes % (A) 35 %; MCH 30.1 pg (25.0-35.0); MCHC 33.2 g/dL (31.0-37.0); MCV 90.5 fL (80.0-100.0); Mean Platelet Volume 7.2; Monocytes # (A) 0.3 k/uL (0-1.0); Monocytes % (A) 5 %; Neutrophils # (A) 3.1 k/uL (1.3-7.7); Neutrophils % (A) 50 %; Platelet Count 211 k/uL (150-450); RBC 4.19 m/uL (3.80-5.40); RDW 14.5 % (11.5-15.5); WBC 6.2 k/uL (3.8-10.6)
[2019-01-03 05:22] LABS: African American GFR (CKD) 39.6 (60.0-200.0); Anion Gap 11.2 mmol/L (4.00-12.00); Calcium 9.2 mg/dL (8.7-10.3); Carbon Dioxide 22.8 mmol/L (21.6-31.8); Potassium 4.4 mmol/L (3.5-5.5)
[2019-01-03 05:26] LABS: Vitamin D 25 Hydroxy 29.2 ng/mL (30.0-100.0)
== END | disposition home or self-care (01) ==
LOC: LABWHC1 16:35
PROVIDERS: ATTEND Internal Medicine Nephrology
DX: N18.3 Chronic kidney disease, stage 3 (moderate) (principal)
CPT/HCPCS: 36415; 80048; 81001; 82306; 83970; 85025

== ENCOUNTER → 2019-01-07 | Outpatient (CLI) | payer MEDICARE ==
--- NOTE | 2019-01-08 10:15 | MR ---
EXAMINATION TYPE: MR lumbar spine wo con DATE OF EXAM: 01/07/2019 COMPARISON: Prior MRI lumbar spine July 26, 2016. Outside lumbar spine x-rays December 27, 2018. HISTORY: Low back pain per order. Central back pain into bilateral buttocks and right thigh since Apr per patient. TECHNIQUE: Multiplanar, multisequence imaging of the lumbar spine is performed without IV contrast. FINDINGS: Sagittal images of the lumbar spine show vertebral body heights and alignment to remain sat isfactory. Multilevel disc desiccation with mild multilevel disc space narrowing that has relative sp aring of L4-L5 and L5-S1 levels is redemonstrated. The conus medullaris remains normal in position a nd signal ending superior L1 level. The bone marrow signal intensity is within normal limits. Mild t o moderate multilevel anterior spurring. There is posterior disc herniation T11-T12 level effacing an terior thecal sac on sagittal image 9 redemonstrated right paracentral in location significantly effa cing anterolateral thecal sac Axial images at T12-L1 level remain within normal limits. Axial images at L1-L2 level read demonstrate [id number] broad disc bulge effacing the anterior thecal sac. Bilateral neural foramina are patent. No significant change from prior. Axial images at the L2-L3 level show [id number] broad disc bulge effacing anterior thecal sac a nd causing mild bilaterally anterior inferior neural foraminal narrowing. There are mild facet degene rative changes and ligamentum flavum hypertrophy. No significant change from prior. Axial images at L3-L4 level show [id number] facet degenerative changes bilaterally. There is mo derate to severe broad disc bulge with right paracentral/foraminal disc protrusion component effacing the anterior thecal sac. There is mild left and [id number] right-sided anterior inferior neura l foraminal narrowing. There is no significant change from prior. Axial images at L4-L5 level show mild to moderate left greater than right facet degenerative changes and ligament flavum hypertrophy. There is mild broad disc bulge with left foraminal disc protrusion c omponent causing [id number]-km-[id number] left-sided inferior neural foraminal narrowing. Right-sided neural foramen is patent. No significant change from prior. Axial images at the L5-S1 level show moderate facet degenerative changes bilaterally. Spinal canal is preserved. There is mild bilateral neural foraminal narrowing. No significant change from prior. IMPRESSION: Multilevel degenerative changes in lumbar spine as detailed above. Most prominent finding s redemonstrated at L3-L4 level. Note is made of significant disc herniation T11-T12 level in retrosp ect stable from prior.
== END | disposition home or self-care (01) ==
LOC: RADMRIMAIN 18:51
PROVIDERS: ATTEND Orthopaedic Surgery
DX: M48.07 Spinal stenosis, lumbosacral region (principal); M48.061 Spinal stenosis, lumbar region without neurogenic claudication; M51.26 Other intervertebral disc displacement, lumbar region; M47.816 Spondylosis without myelopathy or radiculopathy, lumbar region; M46.97 Unspecified inflammatory spondylopathy, lumbosacral region
CPT/HCPCS: 72148

== ENCOUNTER → 2019-01-28 | Outpatient (CLI) | payer MEDICARE ==
--- NOTE | 2019-01-28 17:42 | BD ---
EXAMINATION TYPE: Axial Bone Density DATE OF EXAM: 01/28/2019 COMPARISON: 2017 CLINICAL HISTORY: 73-year-old female postmenopausal screening Height: 60.5 Weight: 178 FRAX RISK QUESTIONS: Alcohol (3 or more units per day): NO Family History (Parent hip fracture): YES Glucocorticoids (More than 3mos): no (Ex: prednisone, prednisolone, methylprednisolone, dexamethasone, and hydrocortisone). History of Fracture in Adulthood: no Secondary Osteoporosis: 1. Type 1 Diabetes: no 2. Hyperthyroidism: no 3. Menopause before 45: NO 4. Malnutrition: no 5. Chronic liver disease: no Rheumatoid Arthritis: no Current Tobacco Use: no RISK FACTORS HISTORY OF: Spine Fracture: FUSION CERVICAL SPINE When: about 4 years ago Family History of Osteoporosis: yes Active: yes Diet low in dairy products/other sources of calcium: at least one serving a day Postmenopausal woman: yes Take estrogen and/or progesterone medications: not now How long: about 3-5 years Lost more than 2 inches in height since high school: no Frequent falls: no Poor Health: no Hyperparathyroidism: no Adrenal Insufficiency: no MEDICATIONS: Prednisone or other steroids: no Thyroid Medications: no Osteoporosis Medications: no Additional Medications: blood pressure med, cholesterol med Additional History: knee replacement EXAM MEASUREMENTS: Bone mineral densitometry was performed using the [employer]. Bone mineral density as measured about the Lumbar spine is: ----- L1-L4(G/cm2): 1.039 T Score Values are as follows: ----- L2: -1.5 ----- L3: -0.8 ----- L4: -0.7 ----- L1-L4: -1.2 Bone mineral density has: Decreased -3.8% since study of: 01/24/2017 Bone mineral density about the R hip (g/cm2): 0.810 Bone mineral density about the L hip (g/cm2): 0.822 T Score values are as follows: -----R Neck: -1.6 -----L Neck: -1.6 -----R Total: -1.8 -----L Total: -0.7 Bone mineral density has: Decreased -6.1% since study of: 01/24/2017 IMPRESSION: Osteopenia (T Score between -2.5 and -1). There is slightly increased risk of fracture and the patient may be considered for treatment. Re-Screen 2-5 years. NOTE: T-SCORE=SD OF THE YOUNG ADULT MEAN.
== END | disposition home or self-care (01) ==
LOC: RADBDWWP 10:31
PROVIDERS: ATTEND Internal Medicine
DX: M85.88 Other specified disorders of bone density and structure, other site (principal)
CPT/HCPCS: 77080

== ENCOUNTER → 2019-08-26 | Outpatient (CLI) | payer MEDICARE ==
--- NOTE | 2019-08-28 08:03 | P.PAINCN ---
History of Present Illness - Reason for Consult Consult date: 08/26/19 - History of Present Illness This visit was performed using secure 2 way audio-visual to minimize the risk of transmission of COVID-19 Rebeca is a 74 yr old female who was referred to our clinic by Dr. Leonardo who presents with a chief complaint of right knee pain which has been present since April 2018 following right total knee replacement. Of note, she does not have significant back pain. Pain is located in anterior knee, does not radiate, rated as 2-10/10, described as a "bee sting" sensation, worse with walking, standing, particularly worse at night; better with TENS unit and ice. She denies associated redness, swelling, reduced ROM. She does endorse sensitivity to touch- particularly with sheets at night time. She has tried PT, chiropractic therapy, massage with no significant benefit. Her medications include tylenol and gabapentin which provides some relief, although gabapentin makes her tired and dose was reduced. Of note, she does have renal impairment. Review of systems is negative for chest pain, new onset weakness, numbness/tingling, abdominal pain, malaise, fever, night sweats, chills, homicidal or suicidal ideation, or bowel or bladder incontinence. She endorses SOB with exertion, which is chronic. Objective Physical exam: Constitutional: Healthy appearing, well developed, alert, in no acute distress, obese Psychiatric: Judgement and insight intact, alert and oriented Mood and Affect: mood normal, affect appropriate Head and Face: Inspection: normocephalic atraumatic, extraocular movement intact Respiratory: Breathing non-labored nondyspneic Skin: Head and Neck: skin with no lesions or rash Neurologic: Sensation grossly intact per patient Past Medical History Past Medical History: Hyperlipidemia, Hypertension, Musculoskeletal Disorder, Osteoarthritis (OA), Renal Disease Additional Past Medical History / Comment(s): SOME NUMBNESS/TINGLING FINGERS & TOES. , PAIN RIGHT KNEE SINCE SURGERY 04/2018, STATES KIDNEY DISEASE (FOLLOWS UP WITH DR GOMEZ Q 3 MONTHS), History of Any Multi-Drug Resistant Organisms: None Reported Past Surgical History: Bladder Surgery, Cholecystectomy, Hysterectomy, Joint Replacement, Orthopedic Surgery, Tubal Ligation Additional Past Surgical History / Comment(s): RT total knee 05-08-18,Right Knee SCOPE- partial meniscectomy. Bladder Suspension. JACE Cataract surg. antCERVICAL FUSION , colonoscopy. Past Anesthesia/Blood Transfusion Reactions: Previous Problems w/ Anesthesia Additional Past Anesthesia/Blood Transfusion Reaction / Comm: DIFFICULTY WAKING UP AFTER GALL BLADDER SURGERY. MOTHER HAD DIFFICULTY WAKING UP ALSO Past Psychological History: No Psychological Hx Reported Additional Psychological History / Comment(s): . Smoking Status: Never smoker Past Alcohol Use History: None Reported Past Drug Use History: None Reported - Past Family History Father Family Medical History: Myocardial Infarction ([place]) Mother Family Medical History: Congestive Heart Failure (CHF) Medications and Allergies Home Medications Medication Instructions Recorded Confirmed Type Atorvastatin [Lipitor] 20 mg PO DAILY 11/08/13 08/23/19 History Acetaminophen [Tylenol Arthritis] 1,300 mg PO BID PRN 07/03/18 08/23/19 History Carvedilol [Coreg] 6.25 mg PO BID 08/23/19 08/23/19 History Allergies Allergy/AdvReac Type Severity Reaction Status Date / Time morphine AdvReac "SHAKING" Verified 08/23/19 12:12 VERY BADLY Results Results: MRI lumbar spine done on 01/07/2019 shows multilevel DDD and facet arthropathy, most prominent changes at L3-4 Assessment and Plan Assessment: Chronic right knee pain s/p total knee replacement; with symptoms of neuropathic pain. Unlikely to be CRPS (sensory symptoms only). Obesity Renal impairment (GFR 46, creatinine 1.3) Plan: Medications: would discontinue gabapentin as patient is having side effects (drowsiness). Would start lyrica at 25mg QHS and uptitrate as tolerated; being mindful of renal impairment. I have asked her to discuss this with her PCP (Dr. Hamm) as we are unable to bring her into clinic at this time to obtain controlled substance consent and he has prescribed gabapentin to her in the past. I will send my note to his clinic. Procedures: will hold off at this time. If no significant benefit from lyrica after 1 month trial, would consider diagnostic genicular block (supero-medial, supero-lateral, inferomedial genicular nerves). If good benefit from this, would proceed with radiofrequency ablation of above mentioned nerves. Consults: None Investigations: MRI lumbar spine reviewed; unlikely that source of pain is lumbar spine although she does have DDD at L3 area. Follow-up: in 1 month following trial of Lyrica PQRS Measure Charge Sheet PQRS Narrative: Smoking Status Never smoker Pain Intensity [Right Knee] 9 Scale Used Numeric (1 - 10) Home Medications: Ambulatory Orders Atorvastatin [Lipitor] 20 mg PO DAILY 11/08/13 Acetaminophen [Tylenol Arthritis] 1,300 mg PO BID PRN 07/03/18 Carvedilol [Coreg] 6.25 mg PO BID 08/23/19
== END | disposition home or self-care (01) ==
LOC: PNWHC3 07:44
PROVIDERS: ATTEND Anesthesiology
DX: Z53.9 Procedure and treatment not carried out, unspecified reason (principal)

== ENCOUNTER → 2019-09-23 | Outpatient (CLI) | payer MEDICARE ==
[2019-09-23 10:44] LABS: Basophils # (A) 0.1 k/uL (0-0.2); Basophils % (A) 2 %; Eosinophils # (A) 0.2 k/uL (0-0.7); Eosinophils % (A) 4 %; HCT 42.4 % (34.0-46.0); HGB 13.4 gm/dL (11.4-16.0); Lymphocytes # (A) 1.7 k/uL (1.0-4.8); Lymphocytes % (A) 32 %; MCH 29.6 pg (25.0-35.0); MCHC 31.7 g/dL (31.0-37.0); MCV 93.4 fL (80.0-100.0); Monocytes # (A) 0.4 k/uL (0-1.0); Monocytes % (A) 7 %; Neutrophils # (A) 2.8 k/uL (1.3-7.7); Neutrophils % (A) 53 %; Platelet Count 202 k/uL (150-450); RBC 4.54 m/uL (3.80-5.40); RDW 13.9 % (11.5-15.5); WBC 5.3 k/uL (3.8-10.6)
[2019-09-23 11:01] LABS: Protein/Creatinine Ratio,Urine 0.06
[2019-09-23 11:02] LABS: Appearance,Urine Cloudy (Clear); Bacteria,Urine Few /hpf; Bilirubin,Urine Negative (Negative); Blood,Urine Negative (Negative); Color,Urine Yellow; Glucose,Urine (UA) Negative (Negative); Hyaline Casts,Urine 1 /lpf (0-2); Ketones,Urine Negative (Negative); Leukocyte Esterase,Urine Large (Negative); Mucus,Urine Few /hpf; Nitrite,Urine Positive (Negative); Protein,Urine Trace (Negative); RBC,Urine 3 /hpf (0-5); Specific Gravity,Urine 1.019 (1.001-1.035); Squamous Epithelial Cell,Urine 8 /hpf (0-4); Urobilinogen,Urine <2.0 mg/dL (<2.0); WBC,Urine 63 /hpf (0-5)
[2019-09-23 17:35] LABS: African American GFR (CKD) 46.8 (60.0-200.0); Anion Gap 6.5 mmol/L (4.00-12.00); BUN/Creat Ratio 12.31 Ratio (12.00-20.00); Calcium 9.4 mg/dL (8.7-10.3); Carbon Dioxide 24.5 mmol/L (21.6-31.8); Non-African American GFR(CKD) 40.4 (60.0-200.0); Potassium 5.5 mmol/L (3.5-5.5)
== END | disposition home or self-care (01) ==
LOC: LABWHC1 09:17
PROVIDERS: ATTEND Internal Medicine Nephrology
DX: N02.8 Recurrent and persistent hematuria with other morphologic changes (principal)
CPT/HCPCS: 36415; 80048; 81001; 82570; 84156; 85025

== ENCOUNTER 2019-10-04 15:03 | Observation (INO) | payer MEDICARE ==
[2019-10-04] MEDS ORDERED: ASPIRIN 81 MG PO STA (15:34)
[2019-10-04] MEDS ORDERED: NITROGLYCERIN OINT 1 INCH/GM PACKET TOPICAL STA (15:34)
--- NOTE | 2019-10-04 15:37 | ED ---
General Adult HPI - General Chief complaint: Chest Pain Stated complaint: chest pain Time Seen by Provider: 10/04/19 15:18 Source: patient, RN notes reviewed Mode of arrival: wheelchair Limitations: no limitations - History of Present Illness Initial comments: Patient is a pleasant 74-year-old female presenting to the emergency Department with complaints of chest discomfort. Onset of symptoms was a few days ago. Symptoms seem to be waxing and waning. Patient is currently symptom-free. Discomfort feels like indigestion. At one time there was some radiation to the left posterior shoulder. Patient has had a lot of fatigue and some exertional dyspnea over the past several weeks. No leg pain or leg swelling. No nausea or diaphoresis. - Related Data Home Medications Medication Instructions Recorded Confirmed Atorvastatin [Lipitor] 20 mg PO DAILY 11/08/13 08/23/19 Acetaminophen [Tylenol Arthritis] 1,300 mg PO BID PRN 07/03/18 08/23/19 Carvedilol [Coreg] 6.25 mg PO BID 08/23/19 08/23/19 Allergies Allergy/AdvReac Type Severity Reaction Status Date / Time morphine AdvReac "SHAKING" Verified 10/04/19 15:10 VERY BADLY Review of Systems ROS Statement: Those systems with pertinent positive or pertinent negative responses have been documented in the HPI. ROS Other: All systems not noted in ROS Statement are negative. Constitutional: Denies: fever Eyes: Denies: eye pain ENT: Denies: ear pain Respiratory: Reports: dyspnea Cardiovascular: Reports: chest pain Endocrine: Reports: fatigue Gastrointestinal: Denies: abdominal pain Genitourinary: Denies: dysuria Musculoskeletal: Denies: joint swelling Skin: Denies: rash Neurological: Denies: weakness Past Medical History Past Medical History: Hyperlipidemia, Hypertension, Musculoskeletal Disorder, Osteoarthritis (OA), Renal Disease Additional Past Medical History / Comment(s): SOME NUMBNESS/TINGLING FINGERS & TOES. , PAIN RIGHT KNEE SINCE SURGERY 04/2018, STATES KIDNEY DISEASE (FOLLOWS UP WITH DR GOMEZ Q 3 MONTHS), History of Any Multi-Drug Resistant Organisms: None Reported Past Surgical History: Bladder Surgery, Cholecystectomy, Hysterectomy, Joint Replacement, Orthopedic Surgery, Tubal Ligation Additional Past Surgical History / Comment(s): RT total knee 05-08-18,Right Knee SCOPE- partial meniscectomy. Bladder Suspension. JACE Cataract surg. antCERVICAL FUSION , colonoscopy. Past Anesthesia/Blood Transfusion Reactions: Previous Problems w/ Anesthesia Additional Past Anesthesia/Blood Transfusion Reaction / Comment(s): DIFFICULTY WAKING UP AFTER GALL BLADDER SURGERY. MOTHER HAD DIFFICULTY WAKING UP ALSO Past Psychological History: No Psychological Hx Reported Smoking Status: Never smoker Past Alcohol Use History: None Reported Past Drug Use History: None Reported - Past Family History Father Family Medical History: Myocardial Infarction ([place]) Mother Family Medical History: Congestive Heart Failure (CHF) General Exam Limitations: no limitations General appearance: alert, in no apparent distress Head exam: Present: normocephalic Eye exam: Present: normal appearance Neck exam: Present: normal inspection Respiratory exam: Present: normal lung sounds bilaterally. Absent: chest wall tenderness Cardiovascular Exam: Present: regular rate, normal rhythm Expanded Peripheral pulses: 2+: Radial (R), Radial (L), Dorsalis Pedis (R), Dorsalis Pedis (L) GI/Abdominal exam: Present: soft. Absent: tenderness Extremities exam: Present: normal inspection. Absent: pedal edema, calf tenderness Neurological exam: Present: alert Psychiatric exam: Present: normal affect, normal mood Skin exam: Present: normal color Course Vital Signs 10/04/19 10/04/19 10/04/19 15:06 15:27 16:04 Temperature 98.2 F Pulse Rate 68 67 62 Respiratory 16 18 18 Rate Blood Pressure 128/75 139/77 139/75 O2 Sat by Pulse 99 98 96 Oximetry EKG Findings - EKG Comments: EKG Findings:: Sinus rhythm at 67. PVC present. SC 178. QRS 70. QT 380. QTC 41. Normal axis. Normal QRS. No acute ST change. Medical Decision Making - Medical Decision Making Patient reevaluated and resting comfortably in bed. Patient and family updated on results and plan. Case was crusted detail with Dr. Duvall, who will admit covering for Dr. Hamm. - Lab Data Result diagrams: 10/04/19 15:26 10/04/19 15:36 Lab Results 10/04/19 10/04/19 10/04/19 Range/Units 15:26 15:35 15:36 WBC 6.0 (3.8-10.6) k/uL RBC 4.57 (3.80-5.40) m/uL Hgb 13.8 (11.4-16.0) gm/dL Hct 41.6 (34.0-46.0) % MCV 91.2 (80.0-100.0) fL MCH 30.2 (25.0-35.0) pg MCHC 33.2 (31.0-37.0) g/dL RDW 13.8 (11.5-15.5) % Plt Count 232 (150-450) k/uL Neutrophils % 47 % Lymphocytes % 39 % Monocytes % 7 % Eosinophils % 4 % Basophils % 1 % Neutrophils # 2.8 (1.3-7.7) k/uL Lymphocytes # 2.3 (1.0-4.8) k/uL Monocytes # 0.4 (0-1.0) k/uL Eosinophils # 0.3 (0-0.7) k/uL Basophils # 0.1 (0-0.2) k/uL PT 9.9 (9.0-12.0) sec INR 1.0 (<1.2) APTT 24.4 (22.0-30.0) sec D-Dimer 1.35 H (<0.60) mg/L FEU Sodium (137-145) mmol/L Potassium (3.5-5.1) mmol/L Chloride (98-107) mmol/L Carbon Dioxide (22-30) mmol/L Anion Gap mmol/L BUN (7-17) mg/dL Creatinine (0.52-1.04) mg/dL Est GFR (CKD-EPI)AfAm (>60 ml/min/1.73 sqM) Est GFR (CKD-EPI)NonAf (>60 ml/min/1.73 sqM) Glucose (74-99) mg/dL Calcium (8.4-10.2) mg/dL Magnesium (1.6-2.3) mg/dL Total Bilirubin (0.2-1.3) mg/dL AST (14-36) U/L ALT (4-34) U/L Alkaline Phosphatase (38-126) U/L Troponin I (0.000-0.034) ng/mL NT-Pro-B Natriuret Pep 313 pg/mL Total Protein (6.3-8.2) g/dL Albumin (3.5-5.0) g/dL 06/26/20 06/26/20 Range/Units 15:36 15:36 WBC (3.8-10.6) k/uL RBC (3.80-5.40) m/uL Hgb (11.4-16.0) gm/dL Hct (34.0-46.0) % MCV (80.0-100.0) fL MCH (25.0-35.0) pg MCHC (31.0-37.0) g/dL RDW (11.5-15.5) % Plt Count (150-450) k/uL Neutrophils % % Lymphocytes % % Monocytes % % Eosinophils % % Basophils % % Neutrophils # (1.3-7.7) k/uL Lymphocytes # (1.0-4.8) k/uL Monocytes # (0-1.0) k/uL Eosinophils # (0-0.7) k/uL Basophils # (0-0.2) k/uL PT (9.0-12.0) sec INR (<1.2) APTT (22.0-30.0) sec D-Dimer (<0.60) mg/L FEU Sodium 139 (137-145) mmol/L Potassium 4.7 (3.5-5.1) mmol/L Chloride 107 (98-107) mmol/L Carbon Dioxide 22 (22-30) mmol/L Anion Gap 10 mmol/L BUN 18 H (7-17) mg/dL Creatinine 1.32 H (0.52-1.04) mg/dL Est GFR (CKD-EPI)AfAm 46 (>60 ml/min/1.73 sqM) Est GFR (CKD-EPI)NonAf 40 (>60 ml/min/1.73 sqM) Glucose 86 (74-99) mg/dL Calcium 9.5 (8.4-10.2) mg/dL Magnesium 2.1 (1.6-2.3) mg/dL Total Bilirubin 0.7 (0.2-1.3) mg/dL AST 20 (14-36) U/L ALT 12 (4-34) U/L Alkaline Phosphatase 68 (38-126) U/L Troponin I <0.012 (0.000-0.034) ng/mL NT-Pro-B Natriuret Pep pg/mL Total Protein 7.4 (6.3-8.2) g/dL Albumin 4.2 (3.5-5.0) g/dL - Radiology Data Radiology results: report reviewed (Computed tomography scan of the chest reveals no acute process), image reviewed (x-ray shows no acute process) Disposition Clinical Impression: Chest pain Disposition: ADMITTED IP TO THIS HOSP Is patient prescribed a controlled substance at d/c from ED?: No Referrals: Jb Hamm MD [Primary Care Provider] - 1-2 days Decision Time: 17:27
[2019-10-04 15:42] LABS: Basophils # (A) 0.1 k/uL (0-0.2); Basophils % (A) 1 %; Eosinophils # (A) 0.3 k/uL (0-0.7); Eosinophils % (A) 4 %; HCT 41.6 % (34.0-46.0); HGB 13.8 gm/dL (11.4-16.0); Lymphocytes # (A) 2.3 k/uL (1.0-4.8); Lymphocytes % (A) 39 %; MCH 30.2 pg (25.0-35.0); MCHC 33.2 g/dL (31.0-37.0); MCV 91.2 fL (80.0-100.0); Mean Platelet Volume 7.9; Monocytes # (A) 0.4 k/uL (0-1.0); Monocytes % (A) 7 %; Neutrophils # (A) 2.8 k/uL (1.3-7.7); Neutrophils % (A) 47 %; Platelet Count 232 k/uL (150-450); RBC 4.57 m/uL (3.80-5.40); RDW 13.8 % (11.5-15.5)
[2019-10-04 15:56] LABS: Albumin 4.2 g/dL (3.5-5.0); Calcium 9.5 mg/dL (8.4-10.2); Magnesium 2.1 mg/dL (1.6-2.3); Potassium 4.7 mmol/L (3.5-5.1); Total Bilirubin 0.7 mg/dL (0.2-1.3); Total Protein 7.4 g/dL (6.3-8.2)
[2019-10-04 16:02] LABS: Partial Thromboplastin Time 24.4 sec (22.0-30.0); Prothrombin Time 9.9 sec (9.0-12.0)
[2019-10-04 16:11] LABS: D-Dimer 1.35 mg/L FEU (<0.60)
--- NOTE | 2019-10-04 16:18 | XR ---
EXAMINATION TYPE: XR chest 2V DATE OF EXAM: 10/04/2019 COMPARISON: 01/01/2016 HISTORY: Chest pain TECHNIQUE: Frontal and lateral views of the chest are obtained. FINDINGS: There is no focal air space opacity. No evidence for pneumothorax. No pleural effusion. The cardiac silhouette size is within normal limits. The osseous structures are grossly intact. IMPRESSION: 1. No acute cardiopulmonary process.
--- NOTE | 2019-10-04 17:06 | CT ---
EXAMINATION TYPE: CT angio chest DATE OF EXAM: 10/04/2019 COMPARISON: None HISTORY: chest pain, weakness CT DLP: 430.7 mGycm Automated exposure control for dose reduction was used. CONTRAST: Performed with IV Contrast, patient injected with 72cc mL of Isovue 370. There are 3-D post processed images. There is mild subsegmental atelectasis at the lung bases. There is no pulmonary consolidation. There is no pleural effusion. There is no pericardial effusion. Upper abdominal soft tissues are intact. There are no hilar masses. There is no mediastinal adenopathy. Thoracic aorta is intact. There is no aneurysm or dissection. Ascending aorta measures 3.1 cm. There is normal contrast opacification of the pulmonary arteries. There are no filling defects. There is some spurring in the thoracic spine. There is no compression fracture. Bony thorax appears i ntact. IMPRESSION: No evidence of pulmonary embolism. Minimal subsegmental atelectasis.
[2019-10-04] MEDS ORDERED: NITROGLYCERIN SL TABS 0.4 MG TAB SUBLINGUAL PRN (17:27)
[2019-10-04] MEDS ORDERED: ACETAMINOPHEN TAB 325 MG TAB PO PRN (17:57)
[2019-10-04] MEDS ORDERED: MAG HYDROX/AL HYDROX/SIMETH 30 ML CUP PO PRN (17:57)
[2019-10-04] MEDS ORDERED: ONDANSETRON 4 MG/2 ML VIAL IVP PRN (17:57)
[2019-10-04] MEDS ORDERED: NALOXONE 0.4 MG/ML 1 ML VIAL IV PRN (17:57)
--- NOTE | 2019-10-04 18:07 | P.HPIM ---
History of Present Illness H&P Date: 10/04/19 Chief Complaint: chest pain 74-year-old female presenting to the emergency Department with complaints of chest discomfort. This feels like a burning sensation in the chest. It woke her up from sleep last night, lasted for 2 hours. She had recurrent discomfort throughout the day today. When it first happened it radiated to her left shoulder. Never had these type of symptoms before. She states that she has been having weakness, fatigue and some exertional dyspnea over the past several weeks. No leg pain but she did notice some swelling in her left ankle, no history of trauma. No recent illness, no cough, no fevers or chills. No nausea or diaphoresis. In the emergency department she was evaluated with CT angiogram of the chest that showed no PE. Troponin and EKG are both negative. She was admitted to observation for further evaluation and cardiology consultation. Review of Systems Complete review of system performed, pertinent positives per HPI , otherwise negative Past Medical History Past Medical History: Hyperlipidemia, Hypertension, Musculoskeletal Disorder, Osteoarthritis (OA), Renal Disease Additional Past Medical History / Comment(s): SOME NUMBNESS/TINGLING FINGERS & TOES. , PAIN RIGHT KNEE SINCE SURGERY 04/2018, STATES KIDNEY DISEASE (FOLLOWS UP WITH DR GOMEZ Q 3 MONTHS), History of Any Multi-Drug Resistant Organisms: None Reported Past Surgical History: Bladder Surgery, Cholecystectomy, Hysterectomy, Joint Replacement, Orthopedic Surgery, Tubal Ligation Additional Past Surgical History / Comment(s): RT total knee 05-08-18,Right Knee SCOPE- partial meniscectomy. Bladder Suspension. JACE Cataract surg. antCERVICAL FUSION , colonoscopy. Past Anesthesia/Blood Transfusion Reactions: Previous Problems w/ Anesthesia Additional Past Anesthesia/Blood Transfusion Reaction / Comment(s): DIFFICULTY WAKING UP AFTER GALL BLADDER SURGERY. MOTHER HAD DIFFICULTY WAKING UP ALSO Past Psychological History: No Psychological Hx Reported Smoking Status: Never smoker Past Alcohol Use History: None Reported Past Drug Use History: None Reported - Past Family History Father Family Medical History: Myocardial Infarction ([place]) Mother Family Medical History: Congestive Heart Failure (CHF) Medications and Allergies Home Medications Medication Instructions Recorded Confirmed Type Atorvastatin [Lipitor] 20 mg PO DAILY 11/08/13 08/23/19 History Acetaminophen [Tylenol Arthritis] 1,300 mg PO BID PRN 07/03/18 08/23/19 History Carvedilol [Coreg] 6.25 mg PO BID 08/23/19 08/23/19 History Allergies Allergy/AdvReac Type Severity Reaction Status Date / Time morphine AdvReac "SHAKING" Verified 10/04/19 18:01 VERY BADLY Physical Exam Vitals: Vital Signs Temp Pulse Resp BP Pulse Ox 10/04/19 17:29 63 16 123/65 100 10/04/19 16:04 62 18 139/75 96 10/04/19 15:27 67 18 139/77 98 10/04/19 15:06 98.2 F 68 16 128/75 99 Intake and Output 10/04/19 10/04/19 10/04/19 06:59 14:59 22:59 Other: Weight 81.647 kg Constitutional: No acute distress, conversant, pleasant Eyes:Anicteric sclerae, moist conjunctiva, no lid-lag, PERRLA, ENMT: Oropharynx clear, no erythema, exudates Neck: Supple, FROM, no masses, or JVD, No carotid bruits, No thyromegaly Lungs: Clear to auscultation, Clear to percussion, Normal respiratory effort, no accessory muscle use Cardiovascular: Heart regular in rate and rhythm, No murmurs, gallops, or rubs, trace pedal edema on the left ankle. Abdominal: Soft, Nontender, no guarding, rebound or rigidity, Normoactive bowel sounds, No hepatomegaly, No splenomegaly, No palpable mass Skin: Normal temperature, tone, texture, turgor, no induration, No subcutaneous nodules, No rash, lesions, No ulcers Extremities: No digital cyanosis, No clubbing, Pedal pulses intact and symmetrical, Radial pulses intact and symmetrical, No calf tenderness Psychiatric: Alert and oriented to person, place and time, appropriate affect, intact judgement Neuro: Muscles Strength 5/5 in all 4 extremities, Sensation to light touch grossly present throughout, Cranial nerves II-XII grossly intact, no focal sensory deficits Results CBC & Chem 7: 10/04/19 15:26 10/04/19 15:36 Labs: Abnormal Lab Results - Last 24 Hours (Table) 10/04/19 10/04/19 Range/Units 15:36 15:36 D-Dimer 1.35 H (<0.60) mg/L FEU BUN 18 H (7-17) mg/dL Creatinine 1.32 H (0.52-1.04) mg/dL Assessment and Plan Plan: Chest pain Admit to observation on telemetry Cardiology consultation Echo Cycle troponins Left ankle swelling Rule out DVT Doppler Chronic Hypertension, essential Hyperlipidemia CKD 3 All stable Resume home meds Patient admitted to observation, expected length of stay less than 2 midnights
--- NOTE | 2019-10-04 19:56 | US ---
EXAMINATION TYPE: US venous doppler duplex LE LT DATE OF EXAM: 10/04/2019 7:24 PM COMPARISON: CT chest CLINICAL HISTORY: swelling. Patient c/o swelling at left lateral malleolus today. SIDE PERFORMED: Left TECHNIQUE: The lower extremity deep venous system is examined utilizing real time linear array sonog yordan with graded compression, doppler sonography and color-flow sonography. VESSELS IMAGED: Common Femoral Vein Deep Femoral Vein Greater Saphenous Vein * Femoral Vein Popliteal Vein Small Saphenous Vein * Proximal Calf Veins (* superficial vessels) Left Leg: Negative for DVT IMPRESSION: No evidence of left leg deep vein thrombosis.
[2019-10-04] MEDS: NITROGLYCERIN OINT 1 INCH/GM PACKET TOPICAL SCH (22:22)
[2019-10-04 23:21] LABS: T4, Free (Free Thyroxine) 1.26 ng/dL (0.78-2.19)
[2019-10-05 03:41] VITALS: PULSE 60
[2019-10-05] MEDS: NITROGLYCERIN OINT 1 INCH/GM PACKET TOPICAL SCH (05:36)
[2019-10-05 06:33] LABS: Calcium 9.1 mg/dL (8.4-10.2); Potassium 4.7 mmol/L (3.5-5.1)
[2019-10-05 08:46] VITALS: BP 121/75; RESP 14; TEMP 97.5
--- NOTE | 2019-10-05 08:53 | CONS ---
CONSULTATION Mrs. Duong is a 74-year-old female with known history of hypertension, hyperlipidemia, who presented with symptoms of progressive fatigue going on for the last few weeks as well as episode of chest discomfort. The discomfort occurred the night before last at rest, persisted throughout the day and because of that came into the emergency room. The patient has no exertional chest discomfort on a regular basis, but she gets fatigue and dyspnea. She has no prior history of cardiac disease. No history of dizziness, palpitation, or syncope. No PND, orthopnea, or peripheral edema. She has no recent cardiac workup. Her discomfort yesterday was non positional. It has resolved. Her coronary risk factors are remarkable for hypertension and hyperlipidemia. She is nonsmoker, nondiabetic. MEDICATIONS: Include Coreg 6.25 mg twice a day, Lipitor 20 mg daily. REVIEW OF SYSTEMS: RESPIRATORY system: She has no documented history of asthma, emphysema or bronchitis. GI system: No recent GI bleeding. No peptic ulcer disease. system: No dysuria or hematuria. PHYSICAL EXAMINATION: She is a 74-year-old female, alert, oriented, in no apparent distress. Blood pressure running in the 110s to 120s with a heart rate in the 60s. HEAD: Normocephalic. Eyes sclerae anicteric. NECK: Good upstroke. No bruit. No jugular venous distention. LUNGS: Clear to auscultation. HEART: Regular rate and rhythm S1, S2. No S3 with a systolic ejection murmur heard at the base, ejection type. No diastolic murmur. No rub. ABDOMEN: Soft, nontender. Positive bowel sounds. No organomegaly. EXTREMITIES: No edema. LAB DATA: Revealed a troponin less than 0.012 for 3 samples. BUN and creatinine of and 21.41, potassium 4.7. Cholesterol 130, LDL of 62. Her TSH of 4.8, free T4 1.26. Hemoglobin is 13.8. D-dimer 1.35. Duplex scan of the lower extremity showed no evidence of DVT. CT angiogram of the chest showed no evidence of pulmonary embolism. EKG reveals sinus mechanism with rare PVCs, otherwise no acute changes. Chest x-ray with no acute infiltrate. IMPRESSION: 1. Chest discomfort with unclear etiology. Not typical of ischemic heart disease. 2. Symptoms of fatigue, could be related to bradycardia. 3. History of hypertension. 4. Hyperlipidemia. 5. Abnormal renal function of unknown duration. RECOMMENDATIONS: From the cardiac standpoint, I will cut down the dose of her beta addi. I will obtain echocardiogram with Doppler. If there is no evidence of segmental wall motion abnormality, the patient may be able to be discharged home today and followed as an outpatient. I will cut down the dose of the carvedilol to 3.125 mg twice a day and continue on her statin. Thank you for this consult. We will follow with you. JOSEPH / VIKASN: [id number] /
[2019-10-05] MEDS ORDERED: ATORVASTATIN 20 MG TAB PO SCH (09:00)
[2019-10-05] MEDS ORDERED: ASPIRIN 325 MG TAB PO SCH (09:00)
[2019-10-05] MEDS ORDERED: ASPIRIN 81 MG PO SCH (09:00)
--- NOTE | 2019-10-05 13:42 | ECHOF ---
Referral Reason:chest pain MEASUREMENTS -------- HEIGHT: 154.9 cm WEIGHT: 81.6 kg BP: 101/67 RVIDd: 2.5 cm (< 3.3) IVSd: 1.2 cm (0.6 - 1.1) LVIDd: 3.4 cm (3.9 - 5.3) LVPWd: 1.2 cm (0.6 - 1.1) IVSs: 1.7 cm LVIDs: 2.4 cm LVPWs: 1.5 cm LA Diam: 3.4 cm (2.7 - 3.8) LAESV Index (A-L): 16.01 ml/m Ao Diam: 2.7 cm (2.0 - 3.7) AV Cusp: 1.9 cm (1.5 - 2.6) MV EXCURSION: 13.991 mm (> 18.000) MV EF SLOPE: 85 mm/s (70 - 150) EPSS: 0.5 cm MV E Benito: 0.79 m/s MV DecT: 281 ms MV A Benito: 0.83 m/s MV E/A Ratio: 0.96 RAP: 5.00 mmHg RVSP: 25.25 mmHg FINDINGS -------- Sinus rhythm. This was a technically adequate study. The left ventricular size is normal. There is borderline concentric left ventricular hypertrophy. Overall left ventricular systolic function is normal with, an EF between 60 - 65 %. The right ventricle is normal in size. Normal LA size by volume 22+/-6 ml/m2. The right atrium is normal in size. Interatrial and interventricular septum intact. The aortic valve is trileaflet and appears structurally normal. The mitral valve leaflets are mildly thickened. Mild mitral annular calcification present. Mild tricuspid regurgitation present. Right ventricular systolic pressure is normal at < 35 mmHg. Trace/mild (physiologic) pulmonic regurgitation. The aortic root size is normal. Normal inferior vena cava with normal inspiratory collapse consistent with estimated right atrial pre ssure of 5 mmHg. There is no pericardial effusion. CONCLUSIONS -------- 1. Sinus rhythm. 2. This was a technically adequate study. 3. The left ventricular size is normal. 4. There is borderline concentric left ventricular hypertrophy. 5. Overall left ventricular systolic function is normal with, an EF between 60 - 65 %. 6. The right ventricle is normal in size. 7. Normal LA size by volume 22+/-6 ml/m2. 8. The right atrium is normal in size. 9. Interatrial and interventricular septum intact. 10. The aortic valve is trileaflet and appears structurally normal. 11. The mitral valve leaflets are mildly thickened. 12. Mild mitral annular calcification present. 13. Mild tricuspid regurgitation present. 14. Right ventricular systolic pressure is normal at < 35 mmHg. 15. Trace/mild (physiologic) pulmonic regurgitation. 16. The aortic root size is normal. 17. Normal inferior vena cava with normal inspiratory collapse consistent with estimated right atrial pressure of 5 mmHg. 18. There is no pericardial effusion. [employer] COORDINATOR: Yoko Terrell RDCS
--- NOTE | 2019-10-05 15:53 | P.DS ---
Providers Date of admission: 10/04/19 17:27 Expected date of discharge: 10/05/19 Attending physician: Chanell Duvall DO Consults: 10/04/19 17:27 Consult Physician Urgent Consulting Provider: Eder Monahan Consult Reason/Comments: cp Do you want consulting provider notified?: Yes Primary care physician: [facility] Course: 74-year-old female presenting to the emergency Department with complaints of chest discomfort. This feels like a burning sensation in the chest. It woke her up from sleep last night, lasted for 2 hours. She had recurrent discomfort throughout the day today. When it first happened it radiated to her left shoulder. Never had these type of symptoms before. She states that she has been having weakness, fatigue and some exertional dyspnea over the past several weeks. No leg pain but she did notice some swelling in her left ankle, no history of trauma. No recent illness, no cough, no fevers or chills. No nausea or diaphoresis. In the emergency department she was evaluated with CT angiogram of the chest that showed no PE. Troponin and EKG are both negative. She was admitted to observation for further evaluation and cardiology consultation. Patient was admitted to observation, troponin was cycled, remained negative. She did not have any further episodes of chest discomfort. She had an echocardiogram which was reassuring, normal EF. No one motion abnormalities were noted. She was seen by cardiology who decreased the dose of Coreg from 6.25 to 3.125mg twice a day due to bradycardia and fatigue. GERD was suspected as the source of her symptoms, she was told to use Maalox she gets this type of pain. Plan - Discharge Summary Discharge Rx Participant: No New Discharge Prescriptions: New Carvedilol [Coreg] 3.125 mg PO BID-W/MEALS 30 Days #60 tab Mag Hydrox/Al Hydrox/Simeth [Maalox] 15 ml PO Q6HR PRN ml PRN Reason: Indigestion Continue Atorvastatin [Lipitor] 20 mg PO DAILY Acetaminophen [Tylenol Arthritis] 1,300 mg PO BID PRN PRN Reason: Pain Discontinued Carvedilol [Coreg] 6.25 mg PO BID Discharge Medication List Atorvastatin [Lipitor] 20 mg PO DAILY 11/08/13 [History] Acetaminophen [Tylenol Arthritis] 1,300 mg PO BID PRN 03/26/19 [History] Carvedilol [Coreg] 3.125 mg PO BID-W/MEALS 30 Days #60 tab 10/05/19 [Rx] Mag Hydrox/Al Hydrox/Simeth [Maalox] 15 ml PO Q6HR PRN ml 10/05/19 [Rx] Follow up Appointment(s)/Referral(s): Jb Hamm MD [Primary Care Provider] - 1-2 days Bereket Morales MD [STAFF PHYSICIAN] - 1 Week
[2019-10-05] MEDS ORDERED: CARVEDILOL 3.125 MG TAB PO SCH (17:30)
== END 2019-10-05 16:20 | disposition home or self-care (01) ==
LOC: EC 15:03 → 1SOBS 17:27
PROVIDERS: ADMIT Internal Medicine; ATTEND Internal Medicine
DX: R07.89 Other chest pain (principal); R53.83 Other fatigue; R06.09 Other forms of dyspnea; R53.1 Weakness; E78.5 Hyperlipidemia, unspecified; K30 Functional dyspepsia; I12.9 Hypertensive chronic kidney disease with stage 1 through stage 4 chronic kidney disease, or unspecified chronic kidney disease; N18.3 Chronic kidney disease, stage 3 (moderate); M19.90 Unspecified osteoarthritis, unspecified site; R20.0 Anesthesia of skin; R20.2 Paresthesia of skin; M25.472 Effusion, left ankle; Z79.899 Other long term (current) drug therapy; Z88.5 Allergy status to narcotic agent; Z90.49 Acquired absence of other specified parts of digestive tract; Z98.1 Arthrodesis status; Z82.49 Family history of ischemic heart disease and other diseases of the circulatory system
CPT/HCPCS: 99285; 36415; 93005 ×2; 93306; 85379; 84439; 83880; 80061; 80053; 80048; 84443; 83735; 84484; 85025; 85610; 85730; 71046; 93971; 71275; G0378 ×2; Q9967

== ENCOUNTER → 2019-12-09 | Outpatient (CLI) | payer MEDICARE ==
[2019-12-09 14:24] VITALS: BP 140/77; PULSE 68; RESP 14; TEMP 98.1
--- NOTE | 2019-12-09 14:54 | P.PAINPG ---
Subjective Progress Note Date: 12/09/19 This is 74 years old female, with a chronic history of severe right knee pain, patient had right total knee arthroplasty done in April 2018, and patient developed arthrofibrosis of the right knee which is required to have knee manipulation in June 2018, patient continued to have this severe knee pain w hich is localized around the right knee area, the pain is constant is not radiated to the back, and is not radiated to the right leg, just localized around the lateral anterior and medial aspect of the right knee, she does not have redness, she does not have any swelling, she does not have any discharged, she is able to flex and extend the right knee but these movement associated with pain Objective - Vital Signs Vital signs: Vital Signs Temp 98.1 F 12/09/19 14:16 Pulse 68 12/09/19 14:16 Resp 14 12/09/19 14:16 BP 140/77 12/09/19 14:16 Pulse Ox 96 12/09/19 14:16 - Exam Physical Examinations : -Constitutiona : Cooperative , not in acute distress . -HEENT : nech : supple , no Lymphadenopathy , normal thyroid size . : eyes : no ptosis , no icterus, no photophobia . - neurologic : Cranial nerve II to XII intact , no focal neurological deffecit . -psychatric : alert , oriented X 3 , appropriate affect , intact judgment and insight . -Lymphatic : no Lymphadenopathy . - musculoskeltal : Lumber spine moter stegnth lower extremities ,thigh and legs 5/5 Right side , 5/5 Left side deep tendon reflexes : normal Knee Jerk , normal ankle Jerk lumber facet Loading Test =positive Right , positive Left Range of motion of the lumbar spine Flexion 30 degrees, extension 10 degrees strait leg raising test = positive at 45 degree Fabere test= positive Right , and positive LT . Examination of the right knee= incision healed appropriately Flexion and extension of the right knee = full range of motion. No erythema, no swelling, no discharge Mild tenderness at the medial and lateral aspect of the knee joint. MRI of the lumbar spine= lumbar degenerative disc disease and lumbar facet arthropathy Assessment and Plan Plan: Assessment and plan=1-right geniculate neuralgia. Patient could benefit from right genicular nerves X3 block , we will do it twice and if she has positive result then we will proceed with RFA of the right genicular nerves X 3 nerves Time with Patient: Less than 30 PQRS Measure Charge Sheet Measure #130: Documentation of Current Meds in Medical Chart: Patient's medications documented in chart Measure #226: Tobacco Use: Screen & Cessation Intervention: Pt not a tobacco user Measure #111: Pneumonia Vaccination: Pneumococcal vaccine administered or previously received Measure #47: Advance Care Plan: Advance care planning discussed & documented, pt chose/unable to give Measure #412: Opioid Treatment Agreement: No documentation of signed opioid treatment agreement Measure #408: Opioid Therapy Follow-up Evaluation: Patient had NO f/u eval minimum every 3 months during opioid therapy Measure #317: Preventitive Care & Scrn High Bld Press & F/U: Pre-hypertensive or hypertensive BP documented, pt will f/u with PCP Measure #128: Body Mass Index (BMI) Screening & Follow-up: BMI documented ABOVE normal parameters - f/u documented Measure #131: Pain Assessment & Follow-up: Pain positive & plan documented, Follow-up scheduled Measure #431: Unhealthy Alcohol Use Preventative Care & Scrn: Patient not identified as an unhealthy alcohol user PQRS Narrative: Smoking Status Never smoker Blood Pressure 140/77 Pain Intensity [Right Knee] 4 Scale Used Numeric (1 - 10) Hx Alcohol Use (MH) No Home Medications: Ambulatory Orders Atorvastatin [Lipitor] 20 mg PO DAILY 11/08/13 Acetaminophen [Tylenol Arthritis] 1,300 mg PO BID PRN 07/03/18 carvediloL [Coreg] 3.125 mg PO BID-W/MEALS 30 Days #60 tab 10/05/19 Controlled Substance Measures - Controlled Substance Measures Is patient prescribed a controlled substance at discharge?: No
== END | disposition home or self-care (01) ==
LOC: PNWHC3 13:55
PROVIDERS: ATTEND Specialist
DX: G58.8 Other specified mononeuropathies (principal); Z79.891 Long term (current) use of opiate analgesic; Z79.899 Other long term (current) drug therapy
CPT/HCPCS: 99211

== ENCOUNTER → 2019-12-11 | Outpatient (CLI) | payer MEDICARE ==
[2019-12-11 14:32] LABS: Basophils # (A) 0.1 k/uL (0-0.2); Basophils % (A) 1 %; Eosinophils # (A) 0.3 k/uL (0-0.7); Eosinophils % (A) 4 %; HCT 42.5 % (34.0-46.0); HGB 13.6 gm/dL (11.4-16.0); Lymphocytes # (A) 2.3 k/uL (1.0-4.8); Lymphocytes % (A) 37 %; MCH 30.2 pg (25.0-35.0); MCHC 32.1 g/dL (31.0-37.0); Mean Platelet Volume 8.1; Monocytes # (A) 0.5 k/uL (0-1.0); Monocytes % (A) 7 %; Neutrophils % (A) 48 %; Platelet Count 235 k/uL (150-450); RBC 4.52 m/uL (3.80-5.40); RDW 14.2 % (11.5-15.5); WBC 6.1 k/uL (3.8-10.6)
[2019-12-11 19:21] LABS: African American GFR (CKD) 42.8 (60.0-200.0); Anion Gap 8.2 mmol/L (4.00-12.00); BUN/Creat Ratio 11.43 Ratio (12.00-20.00); Calcium 9.3 mg/dL (8.7-10.3); Carbon Dioxide 23.8 mmol/L (21.6-31.8); Non-African American GFR(CKD) 36.9 (60.0-200.0); Potassium 4.8 mmol/L (3.5-5.5)
== END | disposition home or self-care (01) ==
LOC: LABWHC1 11:37
PROVIDERS: ATTEND Internal Medicine Nephrology
DX: N18.3 Chronic kidney disease, stage 3 (moderate) (principal)
CPT/HCPCS: 36415; 80048; 82306; 85025

== ENCOUNTER → 2020-03-25 | Outpatient (CLI) | payer MEDICARE ==
[2020-03-25 12:17] LABS: HCT 40.9 % (34.0-46.0); HGB 13.4 gm/dL (11.4-16.0); MCH 30.7 pg (25.0-35.0); MCHC 32.7 g/dL (31.0-37.0); MCV 93.7 fL (80.0-100.0); Platelet Count 215 k/uL (150-450); RBC 4.37 m/uL (3.80-5.40); RDW 13.7 % (11.5-15.5); WBC 6.1 k/uL (3.8-10.6)
[2020-03-25 18:05] LABS: INR 0.96 (0.90-1.11); Partial Thromboplastin Time 27.6 sec (23.5-31.0); Prothrombin Time 10.4 sec (9.9-11.9)
[2020-03-25 21:02] LABS: African American GFR (CKD) 39.4 (60.0-200.0); Albumin 4.4 g/dL (3.80-4.90); Albumin/Globulin Ratio 1.76 (1.60-3.17); Anion Gap 4.9 mmol/L (4.00-12.00); Calcium 9.6 mg/dL (8.7-10.3); Carbon Dioxide 27.1 mmol/L (21.6-31.8); Globulin 2.5 g/dL (1.6-3.3); Potassium 4.8 mmol/L (3.5-5.5); Total Bilirubin 0.5 mg/dL (0.3-1.2); Total Protein 6.9 g/dL (6.2-8.2)
[2020-03-26 00:26] LABS: Hemoglobin A1C 5.3 % (4.0-6.0)
== END | disposition home or self-care (01) ==
LOC: LABWHC1 11:08
PROVIDERS: ATTEND Physician Assistant Medical
DX: Z01.818 Encounter for other preprocedural examination (principal); D64.9 Anemia, unspecified; M19.90 Unspecified osteoarthritis, unspecified site
CPT/HCPCS: 36415; 80053; 83036; 85027; 85610; 85730; 86850; 86870; 86880; 86900; 86901; 87070

== ENCOUNTER → 2020-11-11 | Outpatient (CLI) | payer MEDICARE ==
[2020-11-12 01:08] LABS: African American GFR (CKD) 46.5 (60.0-200.0); Anion Gap 8.9 mmol/L (4.00-12.00); BUN/Creat Ratio 18.46 Ratio (12.00-20.00); Carbon Dioxide 23.1 mmol/L (21.6-31.8); Non-African American GFR(CKD) 40.1 (60.0-200.0); Potassium 4.4 mmol/L (3.5-5.5); Uric Acid 6.1 mg/dL (2.9-7.7)
== END | disposition home or self-care (01) ==
LOC: LABWHC1 13:30
PROVIDERS: ATTEND Internal Medicine Nephrology
DX: N18.32 Chronic kidney disease, stage 3b (principal)
CPT/HCPCS: 36415; 80048; 83970; 84550

== ENCOUNTER → 2020-12-28 | Outpatient (CLI) | payer MEDICARE ==
--- NOTE | 2020-12-29 09:50 | MM ---
Reason for exam: screening (asymptomatic). Last mammogram was performed 2 years and 2 months ago. History: Patient is postmenopausal. Physical Findings: A clinical breast exam by your physician is recommended on an annual basis and results should be correlated with mammographic findings. MG 3D Screening Mammo W/Cad Bilateral CC and MLO view(s) were taken. CV view(s) were taken of the left breast. Prior study comparison: October 30, 2018, bilateral MG 3d screening mammo w/cad. January 06, 2017, bilateral MG 3d screening mammo w/cad. There are scattered fibroglandular densities. There are benign appearing round, linear, vascular calcifications bilaterally. There is chronic nodularity in the right breast at axilla and in the left breast, tiny, upper quadrant. There is no discrete abnormality. ASSESSMENT: Benign, BI-RAD 2 RECOMMENDATION: Routine screening mammogram of both breasts in 1 year.
== END | disposition home or self-care (01) ==
LOC: RADMAMWWP 08:55
PROVIDERS: ATTEND Internal Medicine
DX: Z12.31 Encounter for screening mammogram for malignant neoplasm of breast (principal); Z78.0 Asymptomatic menopausal state
CPT/HCPCS: 77063; 77067

== ENCOUNTER → 2021-03-10 | Outpatient (CLI) | payer MEDICARE ==
[2021-03-11 00:12] LABS: Basophils # (A) 0.09 X 10*3/uL (0.00-0.10); Basophils % (A) 1.5 %; Eosinophils # (A) 0.76 X 10*3/uL (0.04-0.35); Eosinophils % (A) 12.7 %; HCT 40.4 % (37.2-46.3); HGB 12.7 g/dL (12.0-15.0); Lymphocytes # (A) 1.78 X 10*3/uL (0.90-5.00); Lymphocytes % (A) 29.7 %; MCH 30.4 pg (27.0-32.0); MCHC 31.4 g/dL (32.0-37.0); MCV 96.7 fL (80.0-97.0); Mean Platelet Volume 10.7 fL (9.5-12.2); Monocytes # (A) 0.74 X 10*3/uL (0.20-1.00); Monocytes % (A) 12.4 %; Neutrophils # (A) 2.61 X 10*3/uL (1.80-7.70); Neutrophils % (A) 43.5 %; Platelet Count 331 X 10*3/uL (140-440); RBC 4.18 X 10*6/uL (4.10-5.20); RDW 13.8 % (11.5-14.5); WBC 5.99 X 10*3/uL (4.50-10.00)
[2021-03-11 01:40] LABS: African American GFR (CKD) 48.3 (60.0-200.0); Anion Gap 10.9 mmol/L (10.00-18.00); BUN/Creat Ratio 15.16 Ratio (12.00-20.00); Blood Urea Nitrogen 19.1 mg/dL (9.0-27.0); Calcium 9.7 mg/dL (8.7-10.3); Carbon Dioxide 23.5 mmol/L (20.0-27.5); Non-African American GFR(CKD) 41.6 (60.0-200.0); Potassium 4.8 mmol/L (3.5-5.5)
== END | disposition home or self-care (01) ==
LOC: LABWHC1 15:45
PROVIDERS: ATTEND Internal Medicine Nephrology
DX: N18.32 Chronic kidney disease, stage 3b (principal)
CPT/HCPCS: 36415; 80048; 82306; 85025

== ENCOUNTER → 2021-05-26 | Outpatient (CLI) | payer MEDICARE ==
--- NOTE | 2021-05-26 12:37 | MR ---
EXAMINATION TYPE: MR lumbar spine wo con DATE OF EXAM: 05/26/2021 12:23 PM COMPARISON: NONE HISTORY: Pain in right hip Multiplanar, MultiSpin echo imaging of the lumbar spine was performed. T11-12: Moderate disc desiccation with posterior disc bulge with canal stenosis is suspected identifi ed only on the sagittal data set. MRI of the thoracic spine is recommended for further evaluation. L1-L2: Mild to moderate disc desiccation with posterior disc bulge . No evidence of disc herniation o r central stenosis. Facet joint arthropathy with mild foraminal encroachment. L2-L3: Mild to moderate disc desiccation with posterior disc bulge . No evidence of disc herniation o r central stenosis. Facet joint arthropathy with mild foraminal encroachment. L3-L4: Moderate disc desiccation with posterior disc bulge. Effacement ventral thecal sac with hypert rophy of the ligamentum flavum and facet joint arthropathy resulting in central stenosis moderate in degree. Mild bilateral foraminal encroachment. L4-L5: Moderate disc desiccation with posterior disc bulge. Effacement ventral thecal sac with hypert rophy of the ligamentum flavum and facet joint arthropathy resulting in central stenosis mild in degr ee. Mild bilateral foraminal encroachment. L5-S1: Mild to moderate disc desiccation. Posterior disc bulge mild in degree. No evidence for disc h erniation or protrusion. No central stenosis appreciated. Lumbar segments are intact. No paraspinal masses are identified. Conus medullaris has a normal appe arance. IMPRESSION: 1. Multilevel degenerative disc disease. 2. Central stenosis at L3-4 and L4-5. 3. Central stenosis at T11-T12. MRI of the thoracic spine is advised.
== END | disposition home or self-care (01) ==
LOC: RADMRIMAIN 11:30
PROVIDERS: ATTEND Physician Assistant
DX: M47.816 Spondylosis without myelopathy or radiculopathy, lumbar region (principal); M48.061 Spinal stenosis, lumbar region without neurogenic claudication
CPT/HCPCS: 72148

== ENCOUNTER → 2022-03-01 | Outpatient (CLI) | payer MEDICARE ==
--- NOTE | 2022-03-01 16:40 | BD ---
EXAMINATION TYPE: Axial Bone Density DATE OF EXAM: 03/01/2022 COMPARISON: 01/28/2019 CLINICAL HISTORY: 76 years year old Female. ICD-10 CODE: Z78.0 Asymptomatic menopausal Height: 5FT 1INCH Weight: 188 FRAX RISK QUESTIONS: Alcohol (3 or more units per day): NO Family History (Parent hip fracture): YES, MOTHER Glucocorticoids (More than 3mos): NO (Ex: prednisone, prednisolone, methylprednisolone, dexamethasone, and hydrocortisone). History of Fracture in Adulthood: NO Secondary Osteoporosis: 1. Type 1 Diabetes: NO 2. Hyperthyroidism: NO 3. Menopause before 45: NO 4. Malnutrition: NO 5. Chronic liver disease: NO Rheumatoid Arthritis: NO Current Tobacco Use: NO RISK FACTORS HISTORY OF: Hip Fracture (Right/Left): NO Spine Fracture: NO History of Wrist Fracture: NO Surgery to Spine/Hip(right/left)/Wrist (right/left): YES, RIGHT HIP REPLACEMENT IN 2019, ALSO LAMINEC MANDY IN SEPTEMBER 2021 L3, L4, L5 Family History of Osteoporosis: YES, MOTHER Active: NOT AT THIS TIME Diet low in dairy products/other sources of calcium: NO Postmenopausal woman: YES Lost more than 2 inches in height since high school: NO Frequent falls: NO Poor Health: FAIR Hyperparathyroidism: NO Adrenal Insufficiency: YES, STAGE 3B KIDNEY DISEASE MEDICATIONS: Prednisone or other steroids: NO Thyroid Medications: NO Osteoporosis Medications: NO Additional Medications: CALCIUM, CHOLESTEROL MEDS, BLOOD PRESSURE MEDS, TYLENOL EXAM MEASUREMENTS: Bone mineral densitometry was performed using the CiiNOW System. Bone mineral density about the L hip (g/cm2): 0.855 T Score values are as follows: -----L Neck: -1.3 -----L Total: -0.6 Bone mineral density has: INCREASED 1.2% since study of: 01/28/2019 Bone mineral density about the L Wrist (g/cm2): 0.708 T Score values are as follows: -----Dist. R+U: 1.0 -----Prox. R+U: 0.0 -----Radius total: 0.6 BASELINE FOREARM FRAX%s: The graph provided illustrates a 17.4% chance for a major osteoporotic fx and a 8.3% chance f or the hips probability for fx in 10 years time. IMPRESSION: Osteopenia (T Score between -2.5 and -1). There is slightly increased risk of fracture and the patient may be considered for treatment. Re-Screen 2-5 years. NOTE: T-SCORE=SD OF THE YOUNG ADULT MEAN.
--- NOTE | 2022-03-02 09:20 | MM ---
Reason for Exam: Screening (asymptomatic). Last mammogram was performed 1 year(s) and 2 month(s) ago. Patient History: Menarche at age 14. First Full-Term at age 21. Hysterectomy at age 60. Postmenopausal. Patient has history of breast feeding. Risk Values: Alma 5 year model risk: 1.4%. NCI Lifetime model risk: 2.9%. Prior Study Comparison: 01/06/2017 Bilateral Screening Mammogram, [facility]. 10/30/2018 Bilateral Screening Mammogram, [facility]. 12/28/2020 Bilateral Screening Mammogram, [facility]. Tissue Density: The breast tissue is almost entirely fat. Findings: Analyzed By CAD. There is no suspicious group of microcalcifications or new suspicious mass in either breast. Overall Assessment: Negative, BI-RAD 1 Management: Screening Mammogram of both breasts in 1 year. A clinical breast exam by your physician is recommended on an annual basis and results should be correlated with mammographic findings. [facility] will attempt to contact patient to return for supplemental views and ultrasound if indicated. Electronically signed and approved by: Jadiel Colby DO
== END | disposition home or self-care (01) ==
LOC: RADBDWWP 14:00
PROVIDERS: ATTEND Family Medicine
DX: Z12.31 Encounter for screening mammogram for malignant neoplasm of breast (principal); M85.89 Other specified disorders of bone density and structure, multiple sites; Z78.0 Asymptomatic menopausal state; Z79.52 Long term (current) use of systemic steroids
CPT/HCPCS: 77063; 77067; 77080

== ENCOUNTER → 2023-02-17 | Outpatient (CLI) | payer MEDICARE ==
[2023-02-17 16:08] LABS: Basophils # (A) 0.06 X 10*3/uL (0.00-0.10); Basophils % (A) 0.9 %; Eosinophils # (A) 0.27 X 10*3/uL (0.04-0.35); Eosinophils % (A) 4.3 %; HCT 37.8 % (37.2-46.3); HGB 12.2 g/dL (12.0-15.0); Lymphocytes # (A) 2.13 X 10*3/uL (0.90-5.00); Lymphocytes % (A) 33.6 %; MCH 31.2 pg (27.0-32.0); MCHC 32.3 g/dL (32.0-37.0); MCV 96.7 FL (80.0-97.0); Mean Platelet Volume 11.2 FL (9.5-12.2); Monocytes # (A) 0.62 X 10*3/uL (0.20-1.00); Monocytes % (A) 9.8 %; NRBC Per 100 WBC 0 X 10*3/uL (0.00-0.01); Neutrophils # (A) 3.23 X 10*3/uL (1.80-7.70); Neutrophils % (A) 50.9 %; Platelet Count 223 X 10*3/uL (140-440); RBC 3.91 X 10*6/uL (4.10-5.20); WBC 6.34 X 10*3/uL (4.50-10.00)
[2023-02-17 16:28] LABS: ALT 11 U/L (8-44); AST 17 U/L (13-35); Albumin 4.2 g/dL (3.8-4.9); Alkaline Phosphatase 67 U/L (41-126); BUN/Creat Ratio 13.63 Ratio (12.00-20.00); Blood Urea Nitrogen 25.9 mg/dL (9.0-27.0); Carbon Dioxide 22.7 mmol/L (21.6-31.8); Chloride 108 mmol/L (96-109); Chol/HDL Ratio 2.88 Ratio; Globulin 2.8 g/dL (1.6-3.3); Glucose 93 mg/dL (70-110); LDL Cholesterol,Calculated 73.9 mg/dL (0.0-131.0); Potassium 5.9 mmol/L (3.5-5.5); Sodium 141 mmol/L (135-145); Total Bilirubin 0.5 mg/dL (0.3-1.2)
== END | disposition home or self-care (01) ==
LOC: LABWHC1 10:06
PROVIDERS: ATTEND Family Medicine
DX: Z00.00 Encounter for general adult medical examination without abnormal findings (principal)
CPT/HCPCS: 36415; 80053; 80061; 84443; 85025

== ENCOUNTER → 2023-03-13 | Outpatient (CLI) | payer MEDICARE ==
--- NOTE | 2023-03-14 20:40 | MM ---
Reason for Exam: Screening (asymptomatic). Last mammogram was performed 1 year(s) and 1 month(s) ago. Patient History: Menarche at age 14. First Full-Term at age 21. Hysterectomy at age 60. Postmenopausal. Patient has history of breast feeding. Risk Values: Alma 5 year model risk: 1.4%. NCI Lifetime model risk: 2.7%. Prior Study Comparison: 10/30/2018 Bilateral Screening Mammogram, [facility]. 12/28/2020 Bilateral Screening Mammogram, [facility]. 03/01/2022 Bilateral MG 3D screening mammo w/cad, [facility]. Tissue Density: There are scattered fibroglandular densities. Findings: Analyzed By CAD. Chronic nodularity on the right. Benign secretory calcifications on both sides. There is no suspicious group of microcalcifications or new suspicious mass in either breast. Overall Assessment: Benign, BI-RAD 2 Management: Screening Mammogram of both breasts in 1 year. . Patient should continue monthly self-breast exams. A clinical breast exam by your physician is recommended on an annual basis. This exam should not preclude additional follow-up of suspicious palpable abnormalities. Note on Alma scores and lifetime risk: 1. A Alma score greater than 3% is considered moderate risk. If this is the case, consider specialist referral to assess eligibility for a risk reducing agent. 2. If overall lifetime risk for the development of breast cancer is 20% or higher, the patient may qualify for future screening with alternating mammogram and breast MRI. Electronically signed and approved by: Ailyn Salazar M.D. Radiologist
== END | disposition home or self-care (01) ==
LOC: RADMAMWWP 14:47
PROVIDERS: ATTEND Family Medicine
DX: Z12.31 Encounter for screening mammogram for malignant neoplasm of breast (principal); Z78.0 Asymptomatic menopausal state
CPT/HCPCS: 77063; 77067